=== PATIENT | female | born 1955 | race Caucasian/White ===

== ENCOUNTER 2024-02-20 10:33 | Observation (INO) ==
--- OUTSIDE RECORDS SUMMARY | 2024-02-20 10:41 | External Medical Summary | Summary of Care ---
Author Name Unknown Organization [facility] Address [address] [place] [address] Phone [phone] Care Team Providers Care Outside Sales Associate Name Role Phone Javi Nair MD Primary Care Provider [phone] Reason for Visit * Reason Onset Date Comments Advice 10/20/2023 Encounter Details Date Type Department Care Team (Late st Contact Info) Description 10/20/2023 Telephone [facility] [address] [place] [address] Javi Nair MD [address] [place] [address] Advice Allergies No known active allergiesdocumented as of this encounter (statuses as of 10/20/2023) Medications Medication Sig Dispensed Refills Start Date End Date Status CALCIUM CARBONATE-VIT D-MIN 600-200 MG-UNIT PO TABS 1 TABLET TWICE DAILY 60 Tab 11 03/19/2010 Active SALINE MIST SPRAY 0.65 % NA SOLN 2 squirts in each nostril in the morning and at night 0 Active VITAMIN B COMPLEX PO TABS one pill each day 0 Active VITAMIN C 500 MG PO TABS take 2 tabs daily 0 Active OSTEO BI-FLEX TRIPLE STRENGTH PO TABS one pill each day 0 Active LUTEIN VISION BLEND PO CAPS one pill each day 0 Active POTASSIUM GLUCONATE 595 MG PO CAPS one pill each day 0 Active TOTAL MEMORY & FOCUS FORMULA PO TABS one pill each day 0 Active cyclobenzaprine (FLEXERIL) 10 MG Tablet Take 1 Tablet by mouth in the morning and 1 Tablet before bedtime. 0 01/06/2015 Active fluticasone (FLONASE) 50 MCG/ACT nasal sprayIndications:Aller gic rhinitis USE TWO SPRAYS IN EACH NOSTRIL ONCE DAILY 1 Bottle 5 12/03/2015 Active OneTouch Delica Lancets 33G Use to test blood sugar once daily DxE11.9 300 Each 3 05/05/2022 Active OneTouch Verio In Vitro Strip (Glucose Blood) Use to test blood sugar once daily DxE11.9 300 Strip 3 05/05/2022 Active Benzonatate 100 MG Oral Capsule (Tessalon Perlalanis) Take by mouth 1 Capsule as needed in the morning AND 1 Capsule as needed at noon AND 1 Capsule as needed in the evening for Cough. 30 Capsule 1 05/19/2022 Active Levocetirizine Dihydrochloride 5 MG Oral TabletIndications:PND (post-nasal drip) Take 1 Tablet by mouth every evening. 30 Tablet 0 12/09/2022 Active Semaglutide(0.25 or 0.5MG/DOS) 2 MG/3ML Solution Pen-injector (Ozempic)Indications:T ype 2 diabetes mellitus with diabetic neuropathy, unspecified whether auto travel counselor insulin use (HCC) Inject 0.5 mg once weekly. Dose decrease 9 mL 1 02/16/2023 Active SUMAtriptan Succinate 100 MG Oral Tablet TAKE 1 TABLET BY MOUTH AT ONSET OF MIGRAINE, MAY REPEAT ONE TAB IN 24 HOURS 12 Tablet 5 04/08/2023 Active Omeprazole 20 MG Oral Capsule Delayed Release (PriLOSEC)Indications: Gastroesophageal reflux disease without esophagitis TAKE 1 CAPSULE BY MOUTH ONCE DAILY 1 HOUR BEFORE THE FIRST MEAL OF THE DAY 90 Capsule 05/14/2023 Active Atorvastatin Calcium 20 MG Oral Tablet (Lipitor)Indications:H yperlipidemia with target LDL less than 100 Take 1 tablet by mouth once daily 90 Tablet 1 05/14/2023 Active Lisinopril-hydroCHLORO thiazide 20-12.5 MG Oral TabletIndications:HTN, goal below 140/90 Take 1 tablet by mouth once daily 90 Tablet 05/18/2023 Active Lisinopril 5 MG Oral Tablet (Prinivil)Indications: HTN, goal below 140/90 TAKE 1 TABLET BY MOUTH AT BEDTIME 90 Tablet 1 06/04/2023 Active Ondansetron HCl 4 MG Oral TabletIndications:Naus ea and vomiting, unspecified vomiting type Take 1-2 Tablets by mouth every 6 hours as needed for Nausea. 12 Tablet 0 06/16/2023 Active metFORMIN HCl ER 500 MG Oral Tablet Extended Release 24 Hour (Glucophage XR)Indications:Type 2 diabetes mellitus with diabetic neuropathy, unspecified whether auto travel counselor insulin use (HCC) Take 1 Tablet by mouth 2 times a day with morning and evening meals. 180 Tablet 3 07/28/2023 Active Sulindac 150 MG Oral TabletIndications:Brac hial plexopathy Take 1 Tablet by mouth in the morning and 1 Tablet before bedtime. 60 Tablet 2 07/28/2023 Active documented as of this encounter (statuses as of 10/20/2023) Active Problems Problem Noted Date Diagnosed Date Type 2 diabetes mellitus with diabetic neuropath y 05/23/2022 Diabetes mellitus without complication 2 Brachial plexopathy 03/06/2016 Hyperlipidemia with target LDL less than 100 Rotator cuff syndrome 04/06/2014 HTN, goal below 140/90 07/06/2012 ADVANCE DIRECTIVE INFORMATION 01/22/2005 Overview: No, Advance Directive brochure given to patient. Menopause 01/28/2004 Allergic rhinitis COMMON MIGRAINE WITHOUT MENTION OF INTRACTABLE M IGRAINE documented as of this encounter (statuses as of 10/20/2023) Resolved Problems Problem Noted Date Diagnosed Date Resolved Date Other disorder of menstruati on and other abnormal bleeding from female genital tract 06/01/2002 01/28/2004 CHONDROMALACIA PATELLAE 10/14/200101/18 documented as of this encounter (statuses as of 10/20/2023) Immunizations Name Administration Dates Next Due COVID-19 mRNA, LNP-s, No Pre serve, 2-Dose Series (Videobot) 11/28/2021 Pneumococcal Conjugate Vacc, 13 Valent (Prevnar) 08/22/2022 Seasonal Influenza, PF, 6 M & above, IM , (FluLaval or Fluzone) 08/22/2022,07/17/2019 Seasonal Influenza, Quadriva lent Hd (Fluzone Hd) 07/28/2023 Seasonal Influenza, Quadriva lent, No Preserve, IM 07/08/2020 Seasonal Influenza, Quadriva lent, No Preserve, Mdck 07/17/2019 Seasonal Influenza, Split, I IV3, With Preserve, Inj 07/19/2008 TDAP (age 10 and older)(Boostrix) 04/23/2021 TDAP (age 11 and older)(Adacel) 04/01/2011 Zoster Vaccine Recombinant (Shingrix) 04/17/2020 ,11/23/2019,09/15/2019 documented as of this encounter Social History Tobacco Use Types Packs/Day Years Used Date Smoking Tobacco: Never Smokeless Tobacco: Never Alcohol Use Standard Drinks/Week Comments No 0 (1 standard drink = 0.6 oz pur e alcohol) PHQ-2 Answer Date Recorded PHQ-2 Score 0 10/13/2019 Hunger Vital Sign Answer Date Recorded Worried About Running Out of Food in the Last Ye ar Never true 10/13/2019 Ran Out of Food in the Last Year Never true 10/13/2019 Sex and Gender Information Value Date Recorded Sex Assigned at Not on file Gender Identity Not on file Sexual Orientation Not on file Job Start Date Occupation Industry Not on file Not on file Not on file documented as of this encounter Miscellaneous Notes * Telephone Encounter - Corinne Robert OSA - 10/20/2023 2:57 PM EST Patient is calling requesting medical advice/appt. She states that her eyes red, itchy and burning 2 days and itchy red spots on her legs size of a quarter today. Please contact the patient. documented in this encounter Plan of Treatment Upcoming Encounters Date Type Department Care Team (Late st Contact Info) Description 01/31/2024 4:00 PM EDT Office Visit [facility] [address] [facility] [place] [id number] Marbella Villagomez [facility]C [address] [facility] [address] 03/27/2024 4:30 PM EDT Imaging Radiology [address], [address] [place] [address] Health Maintenance Due Date Last Done Comments Diabetic Foot Exam 1975 Hepatitis C Screening 1975 Diabetic Eye Exam 02/28/2016 02/27/2015, , 02/27/2015, Additional history exists Hepatitis B (1 of 3 - Risk 3-dose series) 2017 Depression Screening 10/13/2020 10/13/2019 Pneumococcal Vaccine: 65+ Years (2 - PPSV23 or PCV20) 10/17/2022 08/22/2022 COVID-19 Vaccine (2 - season) 2023 11/28/2021 DXA Scan 08/08/2023 08/08/2013 HbA1c 09/18/2023 03/19/2023, 09/21, 03/21/2022, Additional history exists GFR 12/08/2023 12/07/2022, 0710/2021, 10/26/2020, Additional history exists Albumin/Creatinine Ratio 03/19/2024 03/19/2023 Mammogram 03/24/2024 03/24/2023, 090 09/2019, 05/01/2020, Additional history exists COLONOSCOPY-EVERY 5 YRS AGES 18-100 11/20/2025 11/20/2020, 11/20/2020, 08/23/2013, Additional history exists Lipid Panel 03/19/2028 03/19/2023, 11/18, 10/26/2020, Additional history exists DTaP,Tdap,and Td Vaccines (3 - Td or Tdap) 04/23/2031 04/23/2021, 04/01/2011, 10/21/1995 Zoster Vaccines Completed 04/17/2020, 01/2020, 09/15/2019 Influenza Vaccine (FLU shot) Completed 04/2023, 08/22/2022, 07/08/2020, Additional history exists GARDASIL-HPV IMMUNIZATION SERIES Aged Out No longer eligible based on patient's age to complete this topic MENINGOCOCCAL (MENACTRA/MENVEO) Aged Out No longer eligible based on patient's age to complete this topic documented as of this encounter Medical Devices Not on filedocumented as of this encounter Care Teams Outside Sales Associate Relationship Specialty Start Date End Date Javi Nair MD [address] [facility] [place] [address] PCP - General 01/02/04 documented as of this encounter
--- OUTSIDE RECORDS SUMMARY | 2024-02-20 10:41 | External Medical Summary | Summary of Care ---
Author Name Unknown Organization [facility] Address [address] [place] [address] Phone [phone] Care Team Providers Care Sourcing Specialist Name Role Phone Nathaniel Nair MD Primary Care Provider [phone] Reason for Visit * Reason Comments eRx-Medication Refill Encounter Details Date Type Department Care Team (Late st Contact Info) Description 02/09/[address] [facility] [address] [place] [address] Marbella Villagomez PA-C [address] [place] [address] Brachial plexopathy; HTN, goal below 140/90 Allergies No known active allergiesdocumented as of this encounter (statuses as of 02/11/2024) Medications Medication Sig Dispensed Refills Start Date End Date Status CALCIUM CARBONATE-VIT D-MIN 600-200 MG-UNIT PO TABS 1 TABLET TWICE DAILY 60 Tab 11 0 Active SALINE MIST SPRAY 0.65 % NA SOLN 2 squirts in each nostril in the morning and at night Active VITAMIN B COMPLEX PO TABS one pill each day Active VITAMIN C 500 MG PO TABS take 2 tabs daily Active OSTEO BI-FLEX TRIPLE STRENGTH PO TABS one pill each day Active LUTEIN VISION BLEND PO CAPS one pill each day Active POTASSIUM GLUCONATE 595 MG PO CAPS one pill each day Active TOTAL MEMORY & FOCUS FORMULA PO TABS one pill each day Active cyclobenzaprine (FLEXERIL) 10 MG Tablet Take 1 Tablet by mouth in the morning and 1 Tablet before bedtime. 5 Active fluticasone (FLONASE) 50 MCG/ACT nasal sprayIndications:Al lergic rhinitis USE TWO SPRAYS IN EACH NOSTRIL ONCE DAILY 1 Bottle 5 6 Active OneTouch Delica Lancets 33G Use to test blood sugar once daily DxE11.9 300 Each 3 2 Active OneTouch Verio In Vitro Strip (Glucose Blood) Use to test blood sugar once daily DxE11.9 300 Strip 3 2 Active Benzonatate 100 MG Oral Capsule (Tessalon Perles) Take by mouth 1 Capsule as needed in the morning AND 1 Capsule as needed at noon AND 1 Capsule as needed in the evening for Cough. 30 Capsule 1 2 Active Levocetirizine Dihydrochloride 5 MG Oral TabletIndications:P ND (post-nasal drip) Take 1 Tablet by mouth every evening. 30 Tablet 3 Active Semaglutide(0.25 or 0.5MG/DOS) 2 MG/3ML Solution Pen-injector (Ozempic)Indication s:Type 2 diabetes mellitus with diabetic neuropathy, unspecified whether shelter insulin use (HCC) Inject 0.5 mg once weekly. Dose decrease 9 mL 1 3 Active Atorvastatin Calcium 20 MG Oral Tablet (Lipitor)Indication s:Hyperlipidemia with target LDL less than 100 Take 1 tablet by mouth once daily 90 Tablet 1 3 Active Ondansetron HCl 4 MG Oral TabletIndications:N ausea and vomiting, unspecified vomiting type Take 1-2 Tablets by mouth every 6 hours as needed for Nausea. 12 Tablet 3 Active metFORMIN HCl ER 500 MG Oral Tablet Extended Release 24 Hour (Glucophage XR)Indications:Type 2 diabetes mellitus with diabetic neuropathy, unspecified whether shelter insulin use (HCC) Take 1 Tablet by mouth 2 times a day with morning and evening meals. 180 Tablet 3 3 Active Omeprazole 20 MG Oral Capsule Delayed Release (PriLOSEC)Indicatio ns:Gastroesophageal reflux disease without esophagitis TAKE 1 CAPSULE BY MOUTH ONCE DAILY 1 HOUR BEFORE THE FIRST MEAL OF THE DAY 90 Capsule 1 4 Active SUMAtriptan Succinate 100 MG Oral Tablet TAKE 1 TABLET BY MOUTH AT ONSET OF MIGRAINE, MAY REPEAT 1 TABLET IN 24 HOURS 12 Tablet 5 4 Active Sulindac 150 MG Oral TabletIndications:B rachial plexopathy TAKE 1 TABLET BY MOUTH ONCE DAILY IN THE MORNING AND 1 TABLET ONCE DAILY BEFORE BEDTIME 60 Tablet 4 Active Lisinopril 5 MG Oral Tablet (Prinivil)Indicatio ns:HTN, goal below 140/90 TAKE 1 TABLET BY MOUTH AT BEDTIME 90 Tablet 4 Active Lisinopril-hydroCHL OROthiazide 20-12.5 MG Oral TabletIndications:H TN, goal below 140/90 Take 1 Tablet by mouth in the morning. 90 Tablet 4 Active Lisinopril 5 MG Oral Tablet (Prinivil)Indicatio ns:HTN, goal below 140/90 TAKE 1 TABLET BY MOUTH AT BEDTIME 90 Tablet 1 3 02/11/20 24 Discontinued Sulindac 150 MG Oral TabletIndications:B rachial plexopathy Take 1 Tablet by mouth in the morning and 1 Tablet before bedtime. 60 Tablet 2 3 02/11/20 24 Discontinued Lisinopril-hydroCHL OROthiazide 20-12.5 MG Oral TabletIndications:H TN, goal below 140/90 Take 1 tablet by mouth once daily 90 Tablet 4 02/10/20 24 Discontinued(Ref ill) documented as of this encounter (statuses as of 02/11/2024) Active Problems Problem Noted Date Diagnosed Date [...] as of this encounter (statuses as of 02/11/2024) Resolved Problems Problem Noted Date Diagnosed Date Resolved Date Other disorder of menstruati on and other abnormal bleeding from female genital tract 06/01/2002 01/28/2004 CHONDROMALACIA PATELLAE 10/14/200101/18 documented as of this encounter (statuses as of 02/11/2024) Immunizations Name Administration Dates Next Due COVID-19 mRNA, LNP-s, No Pre serve, 2-Dose Series (Pfizer) 11/28/2021 Pneumococcal Conjugate Vacc, 13 Valent (Prevnar) [...] encounter Miscellaneous Notes * Telephone Encounter - Nathaniel Nair MD - 02/11/2024 9:19 AM EDTSigned Prescriptions: Disp Refills Sulindac 150 MG Oral Tablet 60 Tab*0 Sig: TAKE 1 TABLET BY MOUTH ONCE DAILY IN THE MORNING AND 1 TABLET ONCE DAILY BEFORE BEDTIME Authorizing Provider: NATHANIEL NAIR Lisinopril 5 MG Oral Tablet (Prinivil) 90 Tab*0 Sig: TAKE 1 TABLET BY MOUTH AT BEDTIME Authorizing Provider: NATHANIEL NAIR Lisinopril-hydroCH LOROthiazide 20-12.5 MG *90 Tab*0 Sig: Take 1 Tablet by mouth in the morning. Authorizing Provider: NATHANIEL NAIR * Telephone Encounter - Komal Watts roll grinder - 02/10/2024 2:41 PM EDTPending Prescriptions: Disp Refills Sulindac 150 MG Oral Tablet 60 Tab*0 Sig: TAKE 1 TABLET BY MOUTH ONCE DAILY IN THE MORNING AND 1 TABLET ONCE DAILY BEFORE BEDTIME Lisinopril 5 MG Oral Tablet (Prinivil) 90 Tab*0 Sig: TAKE 1 TABLET BY MOUTH AT BEDTIME Lisinopril-hydroCHLOROthiazide 20-12.5 MG *90 Tab*0 Sig: Take 1 Tablet by mouth in the mo rning. * Telephone Encounter - Komal Watts roll grinder - 02/10/2024 2:40 PM EDT Received message from [facility] regarding patient needing appointment and labs. Call Placed, Left messageon voicemail advising of required labs and to call back for an appointment. Thank you, Komal Watts [facility] ([facility] (formerly [facility]) 02/10/2024,2:40 PM * Telephone Encounter - Regla Heredia [facility] - 02/10/2024 12:01 PM EDTPending Prescriptions: Disp Refills Sulindac 150 MG Oral Tablet 60 Tab*0 Sig: TAKE 1 TABLET BY MOUTH ONCE DAILY IN THE MORNING AND 1 TABLET ONCE DAILY BEFORE BEDTIME Lisinopril 5 MG Oral Tablet (Prinivil) 90 Tab*0 Sig: TAKE 1 TABLET BY MOUTH AT BEDTIME Lisinopril-hydroCHLOROthiazide 20-12.5 MG *90 Tab*0 Sig: Take 1 Tablet by mouth in the mo rning. * Telephone Encounter - Regla Heredia [facility] - 02/10/2024 11:56 AM EDT Return in about 6 months (around 01/26/2024) for reg return pcp or me Patient no showed f/u appointment. Also needs labs completed. Please contact patient to schedule office visit with PRIMARY CARE and advise of labs ordered for blood draw AND URINE specimen (patient will have to be able to void to provide sample).. Recommend patient to fast if able for labs. Patient may still have water and regular medications. Advise to obtain labs before her scheduled office visit Visit date not found. Last Visit: 07/28/2023 (in office), 08/19/2022 (telemedicine) Next Visit: Visit date not found After contacting patient, please forward request to Nathaniel Nair MD. Thank You, Regla Heredia [facility] Clinical Pharmacist [facility] ([facility]) (formerly Telepharmacy) [phone] 02/10/2024, 12:00 PM documented in this encounter Plan of Treatment Upcoming Encounters Date Type Department Care Team (Late st Contact Info) Description 03/27/2024 4:30 PM EDT Imaging Radiology [facility] [address] [facility] [place] [address] [facility] [place] [address] Health Maintenance Due Date Last Done Comments Diabetic Foot Exam 1975 Hepatitis C Screening 1975 Fecal Occult Blood Test 2002 Sigmoidoscopy 2002 Diabetic Eye Exam 02/28/2016 02/27/2015, , 02/27/2015, Additional history exists Depression Screening 10/13/2020 10/13/2019 Pneumococcal Vaccine: 65+ Years (2 of 2 - PPSV23 or PCV20) 10/17/2022 08/22/2022 COVID-19 Vaccine (2 - season) 2023 11/28/2021 Cologuard 06/29/2023 06/29/2020, 12/2019, 06/23/2020 DXA Scan 08/08/2023 08/08/2013 HbA1c 09/18/2023 03/19/2023, 09/21, 03/21/2022, Additional history exists GFR 12/08/2023 12/07/2022, 10/2021, 10/26/2020, Additional history exists Albumin/Creatinine Ratio 03/19/2024 03/19/2023 Mammogram 03/24/2024 03/24/2023, 090 09/2019, 05/01/2020, Additional history exists Colonoscopy 11/20/2025 11/20/2020, 0 11/2020, 08/23/2013, Additional history exists Colorectal Cancer Screening 11/20/2025 Lipid Panel 03/19/2028 03/19/2023, 11/18, 10/26/2020, Additional history exists DTaP,Tdap,and Td Vaccines (3 - Td or Tdap) 04/23/2031 04/23/2021, 04/01/2011, 10/21/1995 Zoster Vaccines Completed 04/17/2020, 0 01/2020, 09/15/2019 RETIRED - COLONOSCOPY-EVERY 5 YRS AGES 18-100 Discontinued 11/20/2020, 11/20/2020, 08/23/2013, Additional history exists Influenza Vaccine (FLU shot) Completed 07/28/2023, 08/22/2022, 07/08/2020, Additional history exists GARDASIL-HPV IMMUNIZATION SERIES Aged Out No longer eligible based on patient's age to complete this topic Hepatitis B Aged Out No longer eligi ble based on patient's age to complete this topic MENINGOCOCCAL (MENACTRA/MENVEO) Aged Out No longer eligible based on patient's age to complete this topic documented as of this encounter Medical Devices Not on filedocumented as of this encounter Visit Diagnoses Diagnosis Brachial plexopathy Brachial plexus lesions HTN, goal below 140/90 Unspecified essential hypertension documented in this encounter Care Teams Sourcing Specialist Relationship Specialty Start Date End Date Nathaniel Nair MD [address] [place] [address] PCP - General 01/02/04 documented as of this encounter
--- OUTSIDE RECORDS SUMMARY | 2024-02-20 10:41 | External Medical Summary | Summary of Care ---
Author Name Unknown Organization [facility] Address [address] [place] [address] Phone [phone] Care Team Providers Care Net Technical Architect Name Role Phone Javi Nair MD Primary Care Provider [phone] Reason for Visit * Reason Onset Date Comments Health Maintenance 01/13/2024 Encounter Details Date Type Department Care Team (Late st Contact Info) Description 01/13/2024 Telephone [facility] [address] [place] [address] Javi Nair MD [address] [place] [address] Health Maintenance Allergies No known active allergiesdocumented as of this encounter (statuses as of 01/13/2024) Medications Medication Sig Dispensed Refills Start Date [...] diabetes mellitus with diabetic neuropathy, unspecified whether usp insulin use (HCC) Inject 0.5 mg once weekly. Dose decrease 9 mL 1 02/16/2023 Active Atorvastatin Calcium 20 MG Oral Tablet (Lipitor)Indications:H yperlipidemia with target LDL less than 100 Take 1 tablet by mouth once daily 90 Tablet 1 05/14/2023 Active Lisinopril 5 MG Oral Tablet (Prinivil)Indications: [...] diabetes mellitus with diabetic neuropathy, unspecified whether usp insulin use (HCC) Take 1 Tablet by mouth 2 times a day with morning and evening meals. 180 Tablet 3 07/28/2023 Active Sulindac 150 MG Oral TabletIndications:Brac hial plexopathy Take 1 Tablet by mouth in the morning and 1 Tablet before bedtime. 60 Tablet 2 07/28/2023 Active Omeprazole 20 MG Oral Capsule Delayed Release (PriLOSEC)Indications: Gastroesophageal reflux disease without esophagitis TAKE 1 CAPSULE BY MOUTH ONCE DAILY 1 HOUR BEFORE THE FIRST MEAL OF THE DAY 90 Capsule 1 11/09/2023 Active Lisinopril-hydroCHLORO thiazide 20-12.5 MG Oral TabletIndications:HTN, goal below 140/90 Take 1 tablet by mouth once daily 90 Tablet 0 11/30/2023 Active SUMAtriptan Succinate 100 MG Oral Tablet TAKE 1 TABLET BY MOUTH AT ONSET OF MIGRAINE, MAY REPEAT 1 TABLET IN 24 HOURS 12 Tablet 5 12/01/2023 Active documented as of this encounter (statuses as of 01/13/2024) Active Problems Problem Noted Date Diagnosed Date [...] as of this encounter (statuses as of 01/13/2024) Resolved Problems Problem Noted Date Diagnosed Date Resolved Date Other disorder of menstruati on and other abnormal bleeding from female genital tract 06/01/2002 01/28/2004 CHONDROMALACIA PATELLAE 10/14/200101/18 documented as of this encounter (statuses as of 01/13/2024) Immunizations Name Administration Dates Next Due COVID-19 mRNA, LNP-s, No Pre serve, 2-Dose Series ([employer]) 11/28/2021 Pneumococcal Conjugate Vacc, 13 Valent (Prevnar) [...] encounter Miscellaneous Notes * Telephone Encounter - Thea Wu LPN - 01/13/2024 2:41 PM EDT Care Gaps Comprehensive Care Outreach Last Office/Telemedicine Visit: 07/28/2023 (in office), 08/19/2022 (telemedicine) Next Office Visit: 01/31/2024 Hemoglobin AIC Results: Lab Results Component Value Date/Time HEMOGLOBIN A1C - [facility] 5.9 (H) 03/19/2023 07:51 AM HEMOGLOBIN A1C - [facility] 6.0 (H) 10/12/2022 03:33 PM HEMOGLOBIN A1C - [facility] 6.3 (H) 03/21/2022 12:15 PM BP Readings from Last 1 Encounters: 07/28/23 122/64 Reviewed Health Maintenance below: Health Maintenance Topic Date Due Diabetic Foot Exam Never done Hepatitis C Screening Never done Diabetic Eye Exam 02/28/2016 Depression Screening 10/13/2020 Pneumococcal Vaccine: 65+ Years (2 of 2 - PPSV23 or PCV20) 10/17/2022 COVID-19 Vaccine (2 - 3-24 season) 2023 DXA Scan 08/08/2023 HbA1c 09/18/2023 GFR 12/08/2023 Albumin/Creatinine Ratio 03/19/2024 Mammogram 03/24/2024 Eye Dexa Labs already ordered Mamm Emily already scheduled order placed Care Gap Outreach Action Taken: Left message documented in this encounter Plan of Treatment Upcoming Encounters Date Type Department Care Team (Late st Contact Info) Description 01/31/2024 4:00 PM EDT Office Visit [facility] [place] [address] [facility] [place] [address] Marbella Villagomez PA-C [address] [facility] [place] [address] 03/27/2024 4:30 PM EDT Imaging Radiology [address] [place] [address] Scheduled Orders Name Type Priority Associated Diagnoses Orde r Schedule MAMMOGRAM SCREENING RADHA BILATERAL Medical Imaging Routine Encounter for screening mammogram for malignant neoplasm of breast Expected: 01/13/2024, Expires: 02/11/2025 Health Maintenance Due Date Last Done Comments Diabetic Foot Exam 1975 Hepatitis C Screening 1975 Diabetic Eye Exam 02/28/2016 02/27/2015, , 02/27/2015, Additional history exists Depression Screening 10/13/2020 10/13/2019 Pneumococcal Vaccine: 65+ Years (2 of 2 - PPSV23 or PCV20) 10/17/2022 08/22/2022 COVID-19 Vaccine ( season) 2023 11/28/2021 DXA Scan 08/08/2023 08/08/2013 HbA1c 09/18/2023 03/19/2023, 09/21, 03/21/2022, Additional history exists GFR 12/08/2023 12/07/2022, 07/0 10/2021, 10/26/2020, Additional history exists Albumin/Creatinine Ratio 03/19/2024 03/19/2023 Mammogram 03/24/2024 03/24/2023, 09/2019, 05/01/2020, Additional history exists COLONOSCOPY-EVERY 5 [...] as of this encounter Visit Diagnoses Diagnosis Encounter for screening mammogram for malignant neoplasm of breast- Primary Other screening mammogram documented in this encounter Care Teams Net Technical Architect Relationship Specialty Start Date End Date Javi Nair MD [address] [place] [address] PCP - General 01/02/04 documented as of this encounter
--- OUTSIDE RECORDS SUMMARY | 2024-02-20 10:41 | External Medical Summary | Summary of Care ---
Author Name Unknown Organization [facility] Address [address] [place] [address] Phone [phone] Care Team Providers Care Hydraulic Technician Name Role Phone Nathaniel Nair MD Primary Care Provider [phone] Reason for Visit * Reason Comments eRx-Medication Refill Encounter Details Date Type Department Care Team (Late st Contact Info) Description 11/29/2023 Refill [facility] [address] [place] [address] Nathaniel Nair MD [address] [place] [address] Allergies No known active allergiesdocumented as of this encounter (statuses as of 12/01/2023) Medications Medication Sig Dispensed Refills Start Date [...] 01/06/2015 Active fluticasone (FLONASE) 50 MCG/ACT nasal sprayIndications:All ergic rhinitis USE TWO SPRAYS IN EACH NOSTRIL [...] 05/19/2022 Active Levocetirizine Dihydrochloride 5 MG Oral TabletIndications:PN D (post-nasal drip) Take 1 Tablet by mouth every evening. 30 Tablet 0 12/09/2022 Active Semaglutide(0.25 or 0.5MG/DOS) 2 MG/3ML Solution Pen-injector (Ozempic)Indications :Type 2 diabetes mellitus with diabetic neuropathy, unspecified whether residential insulin use (HCC) Inject 0.5 mg once weekly. Dose decrease 9 mL 1 02/16/2023 Active Atorvastatin Calcium 20 MG Oral Tablet (Lipitor)Indications :Hyperlipidemia with target LDL less than 100 Take 1 tablet by mouth once daily 90 Tablet 1 05/14/2023 Active Lisinopril 5 MG Oral Tablet (Prinivil)Indication s:HTN, goal below 140/90 TAKE 1 TABLET BY MOUTH AT BEDTIME 90 Tablet 1 06/04/2023 Active Ondansetron HCl 4 MG Oral TabletIndications:Na usea and vomiting, unspecified vomiting type Take 1-2 Tablets by mouth every 6 hours as needed for Nausea. 12 Tablet 0 06/16/2023 Active metFORMIN HCl ER 500 MG Oral Tablet Extended Release 24 Hour (Glucophage XR)Indications:Type 2 diabetes mellitus with diabetic neuropathy, unspecified whether superintendent container terminal insulin use (HCC) Take 1 Tablet by mouth 2 times a day with morning and evening meals. 180 Tablet 3 07/28/2023 Active Sulindac 150 MG Oral TabletIndications:Br achial plexopathy Take 1 Tablet by mouth in the morning and 1 Tablet before bedtime. 60 Tablet 2 07/28/2023 Active Omeprazole 20 MG Oral Capsule Delayed Release (PriLOSEC)Indication s:Gastroesophageal reflux disease without esophagitis TAKE 1 CAPSULE BY MOUTH ONCE DAILY 1 HOUR BEFORE THE FIRST MEAL OF THE DAY 90 Capsule 1 11/09/2023 Active Lisinopril-hydroCHLO ROthiazide 20-12.5 MG Oral TabletIndications:HT N, goal below 140/90 Take 1 tablet by mouth once daily 90 Tablet 0 11/30/2023 Active SUMAtriptan Succinate 100 MG Oral Tablet TAKE 1 TABLET BY MOUTH AT ONSET OF MIGRAINE, MAY REPEAT 1 TABLET IN 24 HOURS 12 Tablet 5 12/01/2023 Active SUMAtriptan Succinate 100 MG Oral Tablet TAKE 1 TABLET BY MOUTH AT ONSET OF MIGRAINE, MAY REPEAT ONE TAB IN 24 HOURS 12 Tablet 5 04/08/2023 12/01/19 24 Discontinued documented as of this encounter (statuses as of 12/01/2023) Active Problems Problem Noted Date Diagnosed Date [...] as of this encounter (statuses as of 12/01/2023) Resolved Problems Problem Noted Date Diagnosed Date Resolved Date Other disorder of menstruati on and other abnormal bleeding from female genital tract 06/01/2002 01/28/2004 CHONDROMALACIA PATELLAE 10/14/200101/18 documented as of this encounter (statuses as of 12/01/2023) Immunizations Name Administration Dates Next Due COVID-19 [...] encounter Miscellaneous Notes * Telephone Encounter - Andria Ellis RPh - 12/01/2023 6:27 AM EDTSigned Prescriptions: Disp Refills SUMAtriptan Succinate 100 MG Oral Tablet 12 Tab*5 Sig: TAKE 1 TABLET BY MOUTH AT ONSET OF MIGRAINE, MAY REPEAT 1 TABLET IN 24 HOURSAuthorizing Provider: NATHANIEL NAIR User: ANDRIA ELLIS documented in this encounter Plan of Treatment Upcoming Encounters Date Type Department Care Team (Late st Contact Info) Description 01/31/2024 4:00 PM EDT Office Visit [facility] [place] [address] [facility] [place] [phone] Marbella Villagomez PA-C [address] [place] [address] 03/27/2024 4:30 PM EDT Imaging Radiology [facility] 1st [facility] [place] [address] [facility] [place] [address] Health Maintenance Due Date Last Done Comments Diabetic Foot Exam 1973 Hepatitis C Screening 1973 Diabetic Eye Exam 02/28/2016 02/27/2015, , 02/27/2015, Additional history exists Depression Screening 10/13/2020 10/13/2019 Pneumococcal Vaccine: 65+ Years (2 of 2 - PPSV23 or PCV20) 10/17/2022 08/22/2022 COVID-19 Vaccine (2 - 2022- season) 2023 11/28/2021 DXA Scan 08/08/2023 08/08/2013 HbA1c 09/18/2023 03/19/2023, 09/21, 03/21/2022, Additional history exists GFR 12/08/2023 12/07/2022, 0710/2021, 10/26/2020, Additional history exists Albumin/Creatinine Ratio 03/19/2024 03/19/2023 Mammogram 03/24/2024 03/24/2023, 09/0 09/2019, 05/01/2020, Additional history exists COLONOSCOPY-EVERY 5 YRS AGES 18-100 11/20/2025 11/20/2020, 11/20/2020, 08/23/2013, Additional history exists Lipid Panel 03/19/2028 03/19/2023, 11/18, 10/26/2020, Additional history exists DTaP,Tdap,and Td Vaccines (3 - Td or Tdap) 04/23/2031 04/23/2021, 04/01/2011, 10/21/1995 Zoster Vaccines Completed 04/17/2020, 0301/2020, 09/15/2019 Influenza Vaccine (FLU shot) Completed 04/2023, [...] filedocumented as of this encounter Care Teams Hydraulic Technician Relationship Specialty Start Date End Date Nathaniel Nair MD [address] [place] [address] PCP - General 01/02/04 documented as of this encounter
--- OUTSIDE RECORDS SUMMARY | 2024-02-20 10:41 | External Medical Summary | Summary of Care ---
Author Name Unknown Organization [facility] Address [address] [place] [address] Phone [phone] Care Team Providers Care Surgery Manager Name Role Phone Javi Nair MD Primary Care Provider [phone] Encounter Details Date Type Department Care Team (Late st Contact Info) Description 11/15/2023 Orders Only Outcomes Research Department [address] [place] [address] Tammy Morgan [facility] Other*[id number] Allergies No known active allergiesdocumented as of this encounter (statuses as of 11/15/2023) Medications Medication Sig Dispensed Refills Start Date [...] diabetes mellitus with diabetic neuropathy, unspecified whether penitentiary insulin use (HCC) Inject 0.5 mg once weekly. Dose decrease 9 mL 1 02/16/2023 Active SUMAtriptan Succinate 100 MG Oral Tablet TAKE 1 TABLET BY MOUTH AT ONSET OF MIGRAINE, MAY REPEAT ONE TAB IN 24 HOURS 12 Tablet 5 04/08/2023 Active Atorvastatin Calcium 20 MG Oral Tablet (Lipitor)Indications:H yperlipidemia with target LDL less than 100 Take 1 tablet by mouth once daily 90 Tablet 1 05/14/2023 Active Lisinopril-hydroCHLORO thiazide 20-12.5 MG Oral TabletIndications:HTN, goal below 140/90 Take 1 tablet by mouth once daily 90 Tablet 1 05/18/2023 Active Lisinopril 5 MG Oral Tablet [...] diabetes mellitus with diabetic neuropathy, unspecified whether intermodal customer service insulin use (HCC) Take 1 Tablet by [...] THE DAY 90 Capsule 1 11/09/2023 Active documented as of this encounter (statuses as of 11/15/2023) Active Problems Problem Noted Date Diagnosed Date [...] as of this encounter (statuses as of 11/15/2023) Resolved Problems Problem Noted Date Diagnosed Date Resolved Date Other disorder of menstruati on and other abnormal bleeding from female genital tract 06/01/2002 01/28/2004 CHONDROMALACIA PATELLAE 10/14/200101/18 documented as of this encounter (statuses as of 11/15/2023) Immunizations Name Administration Dates Next Due COVID-19 mRNA, LNP-s, No Pre serve, 2-Dose Series ([employer]) 11/28/2021 Pneumococcal Conjugate Vacc, 13 Valent (Prevnar) [...] on file documented as of this encounter Plan of Treatment Upcoming Encounters Date Type Department Care Team (Late st Contact Info) Description 01/31/2024 4:00 PM EDT Office Visit [facility] [address] [place] [address] Marbella Villagomez PASkylerC [address] [place] [address] 03/27/2024 4:30 PM EDT Imaging Radiology [address], [address] [place] [address] Scheduled Orders Name Type Priority Associated Diagnoses Orde r Schedule MYCODE SUBSEQUENT ADULT Lab Routine MyCode Research Other*[id number] Every 6 Months for 2 Occurrences starting 11/15/2023 until 12/04/2024 Health Maintenance Due Date Last Done Comments Diabetic Foot Exam 1975 Hepatitis C Screening 1975 Diabetic Eye Exam 02/28/2016 02/27/2015, , 02/27/2015, Additional history exists Depression Screening 10/13/2020 10/13/2019 Pneumococcal Vaccine: 65+ Years (2 of 2 - PPSV23 or PCV20) 10/17/2022 08/22/2022 COVID-19 Vaccine (2 2022-24 season) 2023 11/28/2021 DXA Scan 08/08/2023 08/08/2013 [...] as of this encounter Visit Diagnoses Diagnosis MyCode Research Other*[id number] documented in this encounter Care Teams Surgery Manager Relationship Specialty Start Date End Date Javi Nair MD [address] [place] [address] PCP - General 01/02/04 documented as of this encounter
--- OUTSIDE RECORDS SUMMARY | 2024-02-20 10:41 | External Medical Summary | Summary of Care ---
Author Name Unknown Organization [facility] Address [address] [place] [address] Phone [phone] Care Team Providers Care Delivery And Mail Sorter Name Role Phone Nathaniel Nair MD Primary Care Provider Reason for Visit * Reason Comments eRx-Medication Refill Encounter Details Date Type Department Care Team (Late st Contact Info) Description 11/29/2023 Refill [facility] [address] [place] [address] Marbella Villagomez PA-C [address] [place] [address] Type 2 diabetes mellitus with diabetic neuropathy, without long-term current use of insulin (HCC)*; HTN, goal below 140/90; Hyperlipidemia with target LDL less than 100; Menopause; Encounter for vitamin deficiency screening; Encounter for long-term (current) use of medications; Laboratory exam ordered as part of routine general medical examination Allergies No known active allergiesdocumented as of [...] diabetes mellitus with diabetic neuropathy, unspecified whether fci insulin use (HCC) Inject 0.5 mg once [...] diabetes mellitus with diabetic neuropathy, unspecified whether fci insulin use (HCC) Take 1 Tablet by [...] 12 Tablet 5 04/08/2023 12/01/19 24 Discontinued Lisinopril-hydroCHLO ROthiazide 20-12.5 MG Oral TabletIndications:HT N, goal below 140/90 Take 1 tablet by mouth once daily 90 Tablet 1 05/18/2023 11/30/19 24 Discontinued documented as of this encounter [...] encounter Miscellaneous Notes * Telephone Encounter - Brenton Salas, billboard mechanic - 12/01/2023 10:44 AM EDT Received message from [facility] regarding patient needing labs. Placed call to patient to advise. Left message on voicemail advising of required labs Thank you, Brenton Salas [facility] Program[facility] 12/01/2023, 10:44 AM * Telephone Encounter - Rickie Dyer RP - 11/30/2023 4:46 PM EDTSigned Prescriptions: Disp Refills Lisinopril-hydroCHLOROthiazide 20-12.5 MG *90 Tab*0 Sig: Take 1 tablet by mouth once daily Authorizing Provider: NATHANIEL NAIR Ordering User: RICKIE DYER * Telephone Encounter - Rickie Dyer RP - 11/30/2023 4:38 PM EDT Provided 90 days supply with 0 refill until upcoming appt. Reviewed AMP report, Care Gaps/Health Maintenance, medications list, and for any routine labs typically ordered for this patient. Lab ordersplaced 07/28/23, 11/30/23 . Please contact patient to advise of labs ordered for blood draw AND URINE specimen (patient will have to be able to void to provide sample). Recommend patient to fast if able for labs. Patient may still have water and regular medications. Advise to obtain labs before her scheduled office visit 01/31/2024. Thanks, Rickie Dyer, Madelin.Ph. Clinical Pharmacist [facility] [phone] ext [phone] 11/30/2023,4:43 PM documented in this encounter Plan of Treatment Upcoming Encounters Date Type Department Care Team (Late st Contact Info) Description 01/31/2024 4:00 PM EDT Office Visit [facility] [address] [facility] [place] [phone] Marbella Villagomez PA-C [address] [place] [facility] [place] [address] 03/27/2024 4:30 PM EDT Imaging Radiology [facility] [address] [facility], [address] [place] [address] Scheduled Orders Name Type Priority Associated Diagnoses Orde r Schedule ALBUMIN / CREATININE RATIO, URINE Lab Routine HTN, goal below 140/90 Type 2 diabetes mellitus with diabetic neuropathy, without long-term current use of insulin (HCC) Laboratory exam ordered as part of routine general medical examination Expected: 12/01/2023 (Approximate), Expires: 11/29/2024 LIPID PANEL WITH DIRECT LDL IF TG IS HIGH Lab Routine Hyperlipidemia with target LDL less than 100 Menopause Encounter for long-term (current) use of medications Laboratory exam ordered as part of routine general medical examination Expected: 12/01/2023 (Approximate), Expires: 11/29/2024 VITAMIN B12 Lab Routine Menopause Encounter for vitamin deficiency screening Encounter for long-term (current) use of medications Laboratory exam ordered as part of routine general medical examination Expected: 12/01/2023 (Approximate), Expires: 11/29/2024 HGB Lab Routine HTN, goal below 140/90 Menopause Encounter for long-term (current) use of medications Laboratory exam ordered as part of routine general medical examination Expected: 12/01/2023 (Approximate), Expires: 11/29/2024 COMPREHENSIVE METABOLIC PANEL Lab Routine HTN, goal below 140/90 Type 2 diabetes mellitus with diabetic neuropathy, without long-term current use of insulin (HCC) Menopause Encounter for long-term (current) use of medications Laboratory exam ordered as part of routine general medical examination Expected: 12/01/2023 (Approximate), Expires: 11/29/2024 Health Maintenance Due Date Last Done Comments [...] as of this encounter Visit Diagnoses Diagnosis Type 2 diabetes mellitus with diabetic neuropathy, without long-term current use of insulin (HCC)- Primary HTN, goal below 140/90 Unspecified essential hypertension Hyperlipidemia with target LDL less than 100 Other and unspecified hyperlipidemia Menopause Asymptomatic postmenopausal status (age-related) (natural) Encounter for vitamin deficiency screening Screening for other and unspecified endocrine, nutritional, metabolic, and immunity disorders Encounter for long-term (current) use of medications Encounter for long-term (current) use of other medications Laboratory exam ordered as part of routine general medical examination Laboratory examination ordered as part of a routine general medical examination documented in this encounter Care Teams Delivery And Mail Sorter Relationship Specialty Start Date End Date Nathaniel Nair MD [address] [place] [facility] [place] [address] PCP - General 01/02/04 documented as of this encounter
--- OUTSIDE RECORDS SUMMARY | 2024-02-20 10:41 | External Medical Summary | Summary of Care ---
Author Name Unknown Organization [facility] Address [address] [place] [address] Phone [phone] Care Team Providers Care Roller Picker Name Role Phone Nathaniel Nair MD Primary Care Provider Reason for Visit * Reason Comments eRx-Medication Refill Encounter Details Date Type Department Care Team (Late st Contact Info) Description 11/08/2023 Refill [facility] [address] [place] [address] Nathaniel Nair MD [address] [place] [address] Gastroesophageal reflux disease without esophagitis Allergies No known active allergiesdocumented as of this encounter (statuses as of 11/09/2023) Medications Medication Sig Dispensed Refills Start Date [...] diabetes mellitus with diabetic neuropathy, unspecified whether jail insulin use (HCC) Inject 0.5 mg once [...] once daily 90 Tablet 1 05/14/2023 Active Lisinopril-hydroCHLO ROthiazide 20-12.5 MG Oral TabletIndications:HT N, goal below 140/90 Take 1 tablet by mouth once daily 90 Tablet 1 05/18/2023 Active Lisinopril 5 MG Oral Tablet (Prinivil)Indication [...] diabetes mellitus with diabetic neuropathy, unspecified whether jail insulin use (HCC) Take 1 Tablet by [...] THE DAY 90 Capsule 1 11/09/2023 Active Omeprazole 20 MG Oral Capsule Delayed Release (PriLOSEC)Indication s:Gastroesophageal reflux disease without esophagitis TAKE 1 CAPSULE BY MOUTH ONCE DAILY 1 HOUR BEFORE THE FIRST MEAL OF THE DAY 90 Capsule 1 05/14/2023 11/09/19 24 Discontinued documented as of this encounter (statuses as of 11/09/2023) Active Problems Problem Noted Date Diagnosed Date [...] as of this encounter (statuses as of 11/09/2023) Resolved Problems Problem Noted Date Diagnosed Date Resolved Date Other disorder of menstruati on and other abnormal bleeding from female genital tract 06/01/2002 01/28/2004 CHONDROMALACIA PATELLAE 10/14/200101/18 documented as of this encounter (statuses as of 11/09/2023) Immunizations Name Administration Dates Next Due COVID-19 mRNA, LNP-s, No Pre serve, 2-Dose Series ([employer]) 11/28/2021 Pneumococcal Conjugate Vacc, 13 Valent (Prevnar) [...] encounter Miscellaneous Notes * Telephone Encounter - [place] RPh - 11/09/2023 7:21 AM ESTSigned Prescriptions: Disp Refills Omeprazole 20 MG Oral Capsule Delayed Rele*90 Cap*1 Sig: TAKE 1 CAPSULE BY MOUTH ONCE DAILY 1 HOUR BEFORE THE FIRST MEAL OF THE DAYAuthorizing Provider: NATHANIEL NAIR User: [place] documented in this encounter Plan of Treatment Upcoming Encounters Date Type Department Care Team (Late st Contact Info) Description 01/31/2024 4:00 PM EDT Office Visit [facility] [place] [address] [place] [phone] Marbella Villagomez PA-C [address] [facility] [place] [address] 03/27/2024 4:30 PM EDT Imaging Radiology [facility] [address] [facility] [place] [address] [place] [address] Health Maintenance Due Date Last Done Comments [...] as of this encounter Visit Diagnoses Diagnosis Gastroesophageal reflux disease without esophagitis Esophageal reflux documented in this encounter Care Teams Roller Picker Relationship Specialty Start Date End Date Nathaniel Nair MD [address] [place] [address] PCP - General 01/02/04 documented as of this encounter
--- OUTSIDE RECORDS SUMMARY | 2024-02-20 10:41 | External Medical Summary | Summary of Care ---
Author Name Unknown Organization [facility] Address [address] [place] [address] Phone [phone] Care Team Providers Care Drafter Civil Engineering Name Role Phone Javi Nair MD Primary Care Provider [phone] Encounter Details Date Type Department Care Team (Late st Contact Info) Description 12/02/2023 Orders Only PATIENT PORTAL DO NOT DELETE THIS DEPT USED BY [place] [id number] Allergies No known active allergiesdocumented as of this encounter (statuses as of 12/02/2023) Medications Medication Sig Dispensed Refills Start Date [...] diabetes mellitus with diabetic neuropathy, unspecified whether long term care pharmacist insulin use (HCC) Inject 0.5 mg once [...] diabetes mellitus with diabetic neuropathy, unspecified whether long term care pharmacist insulin use (HCC) Take 1 Tablet by [...] as of this encounter (statuses as of 12/02/2023) Active Problems Problem Noted Date Diagnosed Date [...] as of this encounter (statuses as of 12/02/2023) Resolved Problems Problem Noted Date Diagnosed Date Resolved Date Other disorder of menstruati on and other abnormal bleeding from female genital tract 06/01/2002 01/28/2004 CHONDROMALACIA PATELLAE 10/14/200101/18 documented as of this encounter (statuses as of 12/02/2023) Immunizations Name Administration Dates Next Due COVID-19 [...] Description 01/31/2024 4:00 PM EDT Office Visit [facility] [address] [place] [facility] [place] [phone] Marbella Villagomez PA-C [address] [place] [address] 03/27/2024 4:30 PM EDT Imaging Radiology [address] [facility] [place] [address] Health Maintenance Due Date Last Done Comments [...] filedocumented as of this encounter Care Teams Drafter Civil Engineering Relationship Specialty Start Date End Date Javi Nair MD [address] [place] [address] PCP - General 01/02/04 documented as of this encounter
--- OUTSIDE RECORDS SUMMARY | 2024-02-20 10:41 | External Medical Summary | Summary of Care ---
Author Name Unknown Organization [facility] Address [address] [place] [address] Phone [phone] Care Team Providers Care Human Factors Advisor Lead Name Role Phone Javi Nair MD Primary Care Provider Reason for Visit * Reason Comments eRx-Medication Refill Encounter Details Date Type Department Care Team (Late st Contact Info) Description 02/09/2024 Refill [facility] [address] [place] [address] Javi Nair MD [address] [place] [address] HTN, goal below 140/90 Allergies No known active allergiesdocumented as of this encounter (statuses as of 02/10/2024) Medications Medication Sig Dispensed Refills Start Date [...] the morning and 1 Tablet before bedtime. 01/06/2015 Active fluticasone (FLONASE) 50 MCG/ACT nasal [...] Tablet by mouth every evening. 30 Tablet 12/09/2022 Active Semaglutide(0.25 or 0.5MG/DOS) 2 MG/3ML Solution Pen-injector (Ozempic)Indications:T ype 2 diabetes mellitus with diabetic neuropathy, unspecified whether skilled nursing insulin use (HCC) Inject 0.5 mg once [...] hours as needed for Nausea. 12 Tablet 06/16/2023 Active metFORMIN HCl ER 500 MG Oral Tablet Extended Release 24 Hour (Glucophage XR)Indications:Type 2 diabetes mellitus with diabetic neuropathy, unspecified whether termite exterminator insulin use (HCC) Take 1 Tablet by [...] tablet by mouth once daily 90 Tablet 11/30/2023 Active SUMAtriptan Succinate 100 MG Oral Tablet TAKE 1 TABLET BY MOUTH AT ONSET OF MIGRAINE, MAY REPEAT 1 TABLET IN 24 HOURS 12 Tablet 5 12/01/2023 Active documented as of this encounter (statuses as of 02/10/2024) Active Problems Problem Noted Date Diagnosed Date [...] as of this encounter (statuses as of 02/10/2024) Resolved Problems Problem Noted Date Diagnosed Date Resolved Date Other disorder of menstruati on and other abnormal bleeding from female genital tract 06/01/2002 01/28/2004 CHONDROMALACIA PATELLAE 10/14/200101/18 documented as of this encounter (statuses as of 02/10/2024) Immunizations Name Administration Dates Next Due COVID-19 [...] encounter Miscellaneous Notes * Telephone Encounter - [facility] - 02/10/2024 12:01 PM EDTRefused Prescriptions: Disp Refills Lisinopril-hydroCHLOROthiazide 20-12.5 MG *90 Tab*0 Sig: Take 1tablet by mouth once dailyRefused By: MARC HEREDIA LReason for Refusal: Duplicate RequestReason for Refusal Comment: pended in previous encounter Electronically signed by [facility] at 02/10/2024 12:01 PM EDT documented in this encounter Plan of Treatment Upcoming Encounters Date Type Department Care Team (Late st Contact Info) Description 03/27/2024 4:30 PM EDT Imaging Radiology [address], [address] [place] [address] Health Maintenance Due Date Last Done Comments Diabetic Foot Exam 1973 Hepatitis C Screening 1975 Fecal Occult Blood Test 2002 Sigmoidoscopy 2002 Diabetic Eye Exam 02/28/2016 02/27/2015, , 02/27/2015, Additional history exists Depression Screening 10/13/2020 10/13/2019 Pneumococcal Vaccine: 65+ Years (2 of 2 - PPSV23 or PCV20) 10/17/2022 08/22/2022 COVID-19 Vaccine (2 - 2022- season) 2023 11/28/2021 Cologuard 06/29/2023 06/29/2020, 12/2019, 06/23/2020 DXA Scan 08/08/2023 08/08/2013 HbA1c 09/18/2023 03/19/2023, 09/21, 03/21/2022, Additional history exists GFR 12/08/2023 12/07/2022, 0 10/2021, 10/26/2020, Additional history exists Albumin/Creatinine Ratio [...] as of this encounter Visit Diagnoses Diagnosis HTN, goal below 140/90 Unspecified essential hypertension documented in this encounter Care Teams Human Factors Advisor Lead Relationship Specialty Start Date End Date Javi Nair MD [address] [place] [address] PCP - General 01/02/04 documented as of this encounter
--- NOTE | 2024-02-20 10:54 | Emergency Department Note ---
History of Present Illness General Chief complaint: Cardiac Assessment Stated complaint: CHEST PAIN,CHANGING BP,DIZZY,EXCESSIVE SWEAT Time Seen by Provider: 02/20/24 10:41 Source: patient, RN notes reviewed and old records reviewed (12/07/22-ED visit for hypertension and dizziness) Mode of arrival: ambulatory Limitations: no limitations History of Present Illness Maximum Pain Intensity: 1 This patient six 8-year-old female who is in her usual state of health and feeling well until she got lightheaded and dizzy. She says she was sitting at breakfast table eating cereal around 950 got lightheaded dizziness felt like things were black she took a deep breath and felt better a little bit but she checked her blood pressure and said it was 68 with a pulse of 140 she has had some pain in her back and also into the chest at times. She felt like her heart was racing and she rechecked her pulse it was 199 with a blood pressure 116/73 she has no history of arrhythmias. No history of cardiac disease. She feels much better at present but she still has some vague back discomfort between her shoulder blades. Nonpleuritic she occasionally gets some lower extremity swelling but nothing different lately no fever or chills she had a cold last week but has been doing well this week with otherwise no recent illness. No blood or melena stool. No focal numbness or weakness she is a mild headache which is not unusual for her and she rates it 3 out of 10. No syncope or fall or trauma. No history of PE/DVT. Home Medications Medication Instructions Recorded Confirmed Type lisinopril 20 1 tab PO DAILY 02/20/24 02/20/24 History mg-hydrochlorothiazide 12.5 mg tablet lisinopril 5 mg tablet 5 mg PO HS 02/20/24 02/20/24 History metformin 500 mg tablet,extended 500 mg PO BID 02/20/24 02/20/24 History release 24 hr omeprazole 20 mg capsule,delayed 20 mg PO DAILY 02/20/24 02/20/24 History release sulindac 150 mg tablet 150 mg PO BID 02/20/24 02/20/24 History Allergies Allergy/AdvReac Type Severity Reaction Status Date / Time tuberculin, purified protein Allergy Unknown LOCAL Verified 10/25/09 04:22 deriva REACTION Past Med/Surg History Problem List (Updated 02/20/24 @ 15:38 by Sergo Morrissey MD) Back pain (Acute) Chest pain (Acute) Near syncope Palpitations (Acute) Dizziness (Acute) Diplopia (Acute) Left-sided third cranial nerve palsy on examination (Acute) Medical History H/O: HTN (hypertension) Surgical History No pertinent past surgical history Social History Smoking Status: Never smoker Hx Alcohol Use: No Hx Substance Use: No current occupational status: employed Feels Safe at Home: Yes Review of Systems A total of 10 systems reviewed and were otherwise negative Physical Exam Vital Signs Vital Signs - 24 hr 02/20/24 10:37 02/20/24 10:52 02/20/24 12:47 Temperature 36.9 C Temperature Source Temporal Artery Scan Pulse Rate 111 H 116 H Pulse Rate [Left Finger] 90 Pulse Rhythm [Left Finger] Regular Pulse Strength [Left Finger] Normal Respiratory Rate 16 20 Respiratory Effort / Characteristics Non-Labored Spontaneous Respiratory Depth Normal Normal Respiratory Pattern Regular Blood Pressure 150/85 H Blood Pressure [Left Arm] 126/86 Blood Pressure Mean 106 Blood Pressure Mean [Left Arm] 99 Pulse Oximetry 97 96 Oxygen Delivery Method Room Air Room Air Sepsis Recent Fever Within 48 Hours No Sepsis New/Unexplained Change in Mental Status No Sepsis Action Taken by Nursing No Action Required 02/20/24 14:35 02/20/24 15:21 Temperature Temperature Source Pulse Rate 89 Pulse Rate [Left Finger] 88 Pulse Rhythm [Left Finger] Pulse Strength [Left Finger] Respiratory Rate 16 Respiratory Effort / Characteristics Respiratory Depth Respiratory Pattern Blood Pressure Blood Pressure [Left Arm] 153/121 H Blood Pressure Mean Blood Pressure Mean [Left Arm] 131 Pulse Oximetry 95 Oxygen Delivery Method Room Air Sepsis Recent Fever Within 48 Hours Sepsis New/Unexplained Change in Mental Status Sepsis Action Taken by Nursing General: Well developed well nourished middle-age female who appears in no acute distress, breathing comfortably on room air. Normal speech HEENT: Normal cephalic atraumatic. Pupils are equal round and reactive to light. Extraocular movements are intact. Oropharynx is pink with moist mucous membranes. No swelling of the mouth lips or tongue. Neck: Supple with a midline trachea. No meningeal signs or stiffness, no JVD or bruits. No Stridor. Chest: Clear to auscultation bilaterally. No wheezes or rhonchi. No increased work of breathing. Heart: Regular rate and rhythm without murmurs or gallops. Abdomen: Soft nontender, nondistended without rebound guarding or rigidity. Extremities: No cyanosis clubbing or edema. No calf tenderness or assymetry Spine/Back. Non tender to palpation. No CVA tenderness Skin: Good turgor without rashes. Neurologic exam: Cranial nerves two through 12 are intact. Motor and sensation are intact and symmetrical throughout. Course Administered Medications Discontinued Medications Sodium Chloride (Nss) 1,000 mls @ 999 mls/hr IV .Q1H1M ONE Stop: 02/20/24 11:52 Last Infusion: 02/20/24 15:21 Dose: Infused Documented By: Admin: 02/20/24 11:13 Dose: 999 mls/hr Documented By: JOSE Ioversol (Optiray 320 125ml) 112 ml IV ONCE ONE Stop: 02/20/24 12:36 Last Admin: 02/20/24 12:35 Dose: 112 ml Documented By: NGUYEN Medical Decision Making Differential Diagnosis Acute coronary syndrome, arrhythmia, PE, aortic pathology, pneumothorax, CHF, electrolyte or metabolic abnormality, thyroid disease, sepsis, anemia Medical Records Attestation: I reviewed the patient's medical records. Home Medications Current Medication List: was personally reviewed by me Laboratory Data Attestation: I reviewed the patient's lab results. 02/20/24 10:59 02/20/24 10:59 Lab Results 02/20/24 02/20/24 Range/Units 10:59 11:10 WBC 5.72 (4.8-10.8) K/ul RBC 5.07 (4.20-5.40) M/uL Hgb 15.6 (12.0-16.0) g/dl Hct 46.6 (37.0-47.0) % MCV 91.9 (80.0-100.0) fL MCH 30.8 (25.0-34.0) pg MCHC 33.5 (32.0-36.0) g/dL RDW Std Deviation 41.3 (36.4-46.3) fL RDW Coeff of Sayda 12.3 (11.5-14.5) % Plt Count 279 (130-400) K/uL MPV 10.6 (9.4-12.4) fL Immature Gran % (Auto) 0.2 % Neut % (Auto) 41.8 % Lymph % (Auto) 50.0 % [place] % (Auto) 4.5 % Eos % (Auto) 2.8 % Baso % (Auto) 0.7 % Neut # (Auto) 2.39 (1.40-6.50) K/uL Lymph # (Auto) 2.86 (1.20-3.40) K/uL [place] # (Auto) 0.26 (0.11-0.59) K/uL Eos # (Auto) 0.16 (0.00-0.50) K/uL Baso # (Auto) 0.04 (0.00-0.20) K/uL Immature Gran # (Auto) 0.01 (0.01-0.20) K/uL Platelet Estimate Normal (Normal) PT 10.1 (9.0-12.0) Seconds INR 0.9 (0.9-1.1) APTT 24 (21-31) Seconds PTT Ratio 0.9 D-Dimer 400 (0-500) ug/L FEU Sodium 136 (136-145) mmol/L Potassium 3.9 (3.5-5.1) mmol/L Chloride 104 (98-107) mmol/L Carbon Dioxide 23 (21-32) mmol/L Anion Gap 9 (3-11) BUN 14 (6-23) mg/dl Creatinine 0.76 (0.6-1.2) mg/dl Est Cr Clr Drug Dosing 73.2 ml/min Est GFR ( Amer) 94.7 ml/min Est GFR (Non-Af Amer) 81.7 ml/min BUN/Creatinine Ratio 18.4 (10-20) Glucose 122 H (70-99(Fasting)) mg/dl Calcium 9.6 (8.6-10.3) mg/dl Magnesium 1.7 (1.7-2.4) mg/dl Total Bilirubin 0.5 (0.2-1.0) mg/dl AST 27 (13-39) U/L ALT 28 (7-52) U/L Alkaline Phosphatase 70 (34-104) U/L Troponin I High Sens 13.8 (0-14) pg/ml Total Protein 7.0 (6.0-8.3) gm/dl Albumin 4.3 (3.4-5.0) gm/dl Globulin 2.7 (2.5-4.0) gm/dl Albumin/Globulin Ratio 1.6 (0.9-2) Lipase 17 (11-82) U/L TSH 2.969 (0.300-4.500) uIu/ml Imaging Data Attestation: I personally reviewed and interpreted this imaging study as follows: My Impression: Chest x-rayno acute infiltrate, failure, pneumothorax. Normal-appearing aortic knob. Radiologist's Impression: Chest X-Ray 02/20/24 10:52 XR chest 1V portable CLINICAL HISTORY: Chest pain, nonspecific TECHNIQUE: Single frontal radiograph of the chest was obtained. Comparison: Comparison is made to chest radiographs 01/06/2015 FINDINGS: No lines and tubes are seen. The cardiomediastinal silhouette is normal. The lungs are clear. No evidence of pleural effusion or pneumothorax. IMPRESSION: No acute chest disease. ACT 112: Negative or not required by law. Electronically signed by: Vernon Mc M.D. 02/20/2024 12:04 PM Chest CTA 02/20/24 12:01 CT angio chest dissec wo/w con CLINICAL HISTORY: back pain, tachycardia TECHNIQUE: Multidetector row helical CT of the chest was performed before and after injection of IV contrast. Coronal, sagittal, and MIP reformations were obtained. Automated dose lowering techniques and/or adjustment according to patient size were utilized for this exam. CT DOSE: 1765.64 mGy.cm Comparison: Comparison is made to chest radiograph 02/20/2024 FINDINGS: Lungs and pleura: Atelectasis versus scarring is seen in the dependent portions of the lungs. 4 mm nodule in the right middle lobe (series 7 image 57) is seen. Heart and pericardium: Heart size is normal. No pericardial effusion. Vessels: No aortic dissection or intramural hematoma is seen. Mediastinum and tab: Subcentimeter lymph nodes are seen. Chest wall and lower neck: Small thyroid nodules are noted which do not require follow-up by ACR criteria. Subcentimeter bilateral axillary nodes are seen. Abdomen: Unremarkable. Bones: Degenerative changes in the thoracic spine. IMPRESSION: 1. No acute abnormality and in particular no evidence of acute aortic injury. 2. 4 mm nodule in the right middle lobe. According to Fleischner criteria, no follow-up is required in low risk patients, in high-risk patients, a 12 month follow-up CT can be optionally performed. ACT 112: Negative or not required by law. Electronically signed by: Vernon Mc M.D. 02/20/2024 12:[address] 02/20/24 14:00 CT head/brain wo con CLINICAL HISTORY: near syncope Technique: Contiguous axial CT images of the head were acquired from the base of the skull to the vertex without intravenous contrast administration. Images were viewed in brain, subdural and bone windows. Automated dose lowering techniques and/or adjustment according to patient size were utilized for this exam. Comparison: None available at the time of this dictation. Findings: The ventricles, basal cisterns, and cerebral sulci are normal. There is no acute intracranial hemorrhage or evidence of acute territorial infarction. Neither mass effect, shift of the midline structures, nor abnormal extra-axial fluid collections are shown. Imaged portions of the paranasal sinuses and mastoid air cells are clear. The orbits appear normal. There are no acute fractures of the calvaria or scalp swelling. Impression: No acute intracranial hemorrhage, no evidence of acute territorial infarction or other acute intracranial disease process. ACT 112: Negative or not required by law. Electronically signed by: Vernon Mc M.D. 02/20/2024 2:38 PM ECG Data Attestation: I personally reviewed and interpreted this ECG as follows: Indication: + palpitations and + weakness Rate (beats per minute): 115 Rhythm: + normal sinus ECG Intervals/blocks: + Normal QRS, + Normal QT and + Normal RI ECG [place]: + Normal ECG ST segments: + Normal ST segments ECG Findings: no PACs or no PVCs Comparison ECG Date: from (12/07/21) Change: the following changes noted (Rate has increased from 90 but otherwise no change) MDM Narrative This patient comes in as described above. She was placed on a conveyor monitor in room a 12. She had dizziness at home and by her accounts low blood pressure and tachycardia. At present her blood pressure looks good her heart rate is sinus tachycardic at 115 without ischemic changes. Given her symptoms she needs a full cardiac workup and evaluation for arrhythmia as well as acute coronary syndrome. Also concerned about the potential for pulmonary disease such as PE or aortic pathology. I did order extensive workup she was placed on a conveyor monitor. She was given 1 L IV normal saline bolus. EKG shows no ischemic changes. Multiple blood testing was obtained she was reassessed frequently. Chest x-ray shows no acute infiltrate, failure, pneumothorax. Her aortic shadow/knob appears normal. Troponin was negative. D-dimer is negative which would make PE unlikely. She has no significant electrolyte or metabolic abnormality. I did a chest CT angiography no evidence of aortic pathology or other acute pathology to explain her symptoms. With her symptoms at home where she was very tachycardic and hypotensive, I do think she should be admitted/observed, cardiac monitoring and further cardiac workup. I discussed the case at length with Dr. Arnold and he saw the ER for these measures. Continuous cardiac monitoring call orders placed in EMR for continuous conveyor monitor: Upon my evaluation she was noted to be in sinus tachycardia rate of 110 Impression & Plan Chest pain, Dizziness, Palpitations, Back pain Discharge Plan Visit Data Chief Complaint: Cardiac Assessment Stated Complaint: CHEST PAIN,CHANGING BP,DIZZY,EXCESSIVE SWEAT ED Provider: Sergo Morrissey Discharge Problem: Chest pain, Dizziness, Palpitations, Back pain Forms Stand Alone Forms: My [facility] [employer]mail Prescriptions Prescriptions: No Action lisinopril-hydrochlorothiazide 20-12.5 mg tablet 1 tab PO DAILY sulindac 150 mg tablet 150 mg PO BID omeprazole 20 mg capsule,delayed release(DR/EC) 20 mg PO DAILY lisinopril 5 mg tablet 5 mg PO HS metformin 500 mg tablet extended release 24 hr 500 mg PO BID Referrals Referrals: Javi Nair MD [Primary Care Provider] - Discharge Problem: Chest pain Qualifiers: Chest pain type: precordial pain Qualified Code(s): R07.2 - Precordial pain Back pain Qualifiers: Back pain location: thoracic back pain Chronicity: acute Back pain laterality: midline Qualified Code(s): M54.6 - Pain in thoracic spine
[2024-02-20] MEDS: SODIUM CHLORIDE 0.9% 1,000 ML IV ONE (11:13)
[2024-02-20 11:29] LABS: Albumin Level 4.3 gm/dl (3.4-5.0); Calcium 9.6 mg/dl (8.6-10.3)
[2024-02-20 11:35] LABS: Troponin I High Sensitivity 13.8 pg/ml (0-14)
[2024-02-20 11:37] LABS: BUN Creatinine Ratio 18.4 (10-20); Creatinine Clr Calc Pharmacy 73.2 ml/min; Est GFR (African American) 94.7 ml/min; Est GFR (Non-African American) 81.7 ml/min; Potassium 3.9 mmol/L (3.5-5.1)
[2024-02-20 11:45] LABS: Thyroid Stimulating Hormone 2.969 uIu/ml (0.300-4.500)
[2024-02-20 11:47] LABS: White Blood Count 5.72 K/ul (4.8-10.8)
[2024-02-20 11:48] LABS: Basophils # (auto) 0.04 K/uL (0.00-0.20); Basophils % (auto) 0.7 %; Eosinophils # (auto) 0.16 K/uL (0.00-0.50); Eosinophils % (auto) 2.8 %; Hematocrit (blood only) 46.6 % (37.0-47.0); Hemoglobin 15.6 g/dl (12.0-16.0); Immature Granulocytes # (auto) 0.01 K/uL (0.01-0.20); Immature Granulocytes % (auto) 0.2 %; Lymphocytes # (auto) 2.86 K/uL (1.20-3.40); Mean Corpuscular Hemoglobin 30.8 pg (25.0-34.0); Mean Corpuscular Hgb Conc 33.5 g/dL (32.0-36.0); Mean Corpuscular Volume 91.9 fL (80.0-100.0); Mean Platelet Volume 10.6 fL (9.4-12.4); Monocytes # (auto) 0.26 K/uL (0.11-0.59); Monocytes % (auto) 4.5 %; Neutrophils # (auto) 2.39 K/uL (1.40-6.50); Neutrophils % (auto) 41.8 %; Platelet Count 279 K/uL (130-400); Platelet Estimate Normal (Normal); RDW Coefficient of Variation 12.3 % (11.5-14.5); RDW Standard Deviation 41.3 fL (36.4-46.3); Red Blood Count 5.07 M/uL (4.20-5.40)
[2024-02-20 11:51] LABS: Albumin Globulin Ratio 1.6 (0.9-2); Globulin 2.7 gm/dl (2.5-4.0)
[2024-02-20 11:56] LABS: Bilirubin,Total 0.5 mg/dl (0.2-1.0); Magnesium 1.7 mg/dl (1.7-2.4)
[2024-02-20 12:00] LABS: D Dimer 400 ug/L FEU (0-500); INR 0.9 (0.9-1.1); Partial Thromboplastin Ratio 0.9; Partial Thromboplastin Time 24 Seconds (21-31); Prothrombin Time 10.1 Seconds (9.0-12.0)
--- NOTE | 2024-02-20 12:06 | XRay Report ---
XR chest 1V portable CLINICAL HISTORY: Chest pain, nonspecific TECHNIQUE: Single frontal radiograph of the chest was obtained. Comparison: Comparison is made to chest radiographs 01/06/2015 FINDINGS: No lines and tubes are seen. The cardiomediastinal silhouette is normal. The lungs are clear. No evid ence of pleural effusion or pneumothorax. IMPRESSION: No acute chest disease. ACT 112: Negative or not required by law. Electronically signed by: Vernon Mc M.D. 02/20/2024 12:04 PM
[2024-02-20] MEDS: OPTIRAY 320 125ml IV ONE (12:35)
--- NOTE | 2024-02-20 12:51 | CT Scan Report ---
CT angio chest dissec wo/w con CLINICAL HISTORY: back pain, tachycardia TECHNIQUE: Multidetector row helical CT of the chest was performed before and after injection of IV c ontrast. Coronal, sagittal, and MIP reformations were obtained. Automated dose lowering techniques an d/or adjustment according to patient size were utilized for this exam. CT DOSE: 1765.64 mGy.cm Comparison: Comparison is made to chest radiograph 02/20/2024 FINDINGS: Lungs and pleura: Atelectasis versus scarring is seen in the dependent portions of the lungs. 4 mm no dule in the right middle lobe (series 7 image 57) is seen. Heart and pericardium: Heart size is normal. No pericardial effusion. Vessels: No aortic dissection or intramural hematoma is seen. Mediastinum and tab: Subcentimeter lymph nodes are seen. Chest wall and lower neck: Small thyroid nodules are noted which do not require follow-up by ACR carlos villegas. Subcentimeter bilateral axillary nodes are seen. Abdomen: Unremarkable. Bones: Degenerative changes in the thoracic spine. IMPRESSION: 1. No acute abnormality and in particular no evidence of acute aortic injury. 2. 4 mm nodule in the right middle lobe. According to Fleischner criteria, no follow-up is required in low risk patients, in high-risk patients, a 12 month follow-up CT can be optionally performed. ACT 112: Negative or not required by law. Electronically signed by: Vernon Mc M.D. 02/20/2024 12:49 PM
--- NOTE | 2024-02-20 14:04 | History & Physical Report ---
Date of Service February 20, 2024 Assessment & Plan (1) Near syncope: (2) Palpitations: Plan: 65-year-old female with history of diabetes type 2, hypertension, etc. presenting with near syncopal episode this morning. Episode of Near syncope, palpitations Rule out Arrhythmia Monitor in telemetry Echocardiogram: pending Second troponin: pending If inpatient work up unrevealing, will need Zio patch monitor as an outpatient needs [employer] report until further workup Rule out acute CVA CT head: Pending no focal deficits at this time Check orthostatic vital signs Pulmonary embolism, aortic dissection ruled out by CT angiogram of the chest Diabetes type 2 Hold metformin Patient has discontinued Ozempic due to constipation Insulin sliding scale Hypertension Blood pressure currently 126/86 Hold usual lisinopril/hydrochlorothiazide for now , trend blood pressure Brachial plexopathy Chronic Take sulindac twice a day DVT prophylaxis SCDs for now CODE STATUS full code Disposition Lives at home History of Present Illness Primary Care Provider: Javi Nair MD 65-year-old female with history of diabetes type 2, hypertension, etc. presenting with near syncopal episode this morning. Patient was sitting in her couch, having a bowl of cereal for breakfast when she suddenly felt dizzy and saw everything was black , which lasted for about 2 to 3 seconds. This was followed by a sensation of epigastric discomfort as well as pain in between her shoulder blades. She did not pass out, nor did not have any palpitations during this episode. Using her home monitor, she noted that her blood pressure was systolic 60s, heart rate in the 140s. She rested and after a few minutes, she reports having palpitations . At that time, her monitor was showing that her heart rate was fluctuating between 190s and 40s, blood pressure 116 over 70s. At the ER, blood pressure was 150/85, heart rate 111. EKG sinus rhythm, heart rate [address] angio chest: No PE or dissection On exam, patient seen sitting up in bed, comfortable, not in distress. Denies active chest pain, palpitations, shortness of breath, nausea. States pain between her shoulder blades is also much improved. No other new symptom Allergies Allergy/AdvReac Type Severity Reaction Status Date / Time tuberculin, purified protein Allergy Unknown LOCAL Verified 10/25/09 04:22 deriva REACTION Home Medications Medication Instructions Recorded Confirmed Type lisinopril 20 1 tab PO DAILY 02/20/24 02/20/24 History mg-hydrochlorothiazide 12.5 mg tablet lisinopril 5 mg tablet 5 mg PO HS 02/20/24 02/20/24 History metformin 500 mg tablet,extended 500 mg PO BID 02/20/24 02/20/24 History release 24 hr omeprazole 20 mg capsule,delayed 20 mg PO DAILY 02/20/24 02/20/24 History release sulindac 150 mg tablet 150 mg PO BID 02/20/24 02/20/24 History Past Med/Surg History Problem List (Updated 02/20/24 @ 14:08 by Charlie Arnold MD) Near syncope Palpitations (Acute) Dizziness (Acute) Diplopia (Acute) Left-sided third cranial nerve palsy on examination (Acute) Medical History H/O: HTN (hypertension) Surgical History No pertinent past surgical history Social History Smoking Status: Never smoker Hx Alcohol Use: No Hx Substance Use: No current occupational status: employed Feels Safe at Home: Yes Review of Systems Review of Systems: all noted and negative except for above Physical Exam Physical Exam: General- oriented x 3, not in distress, speaks in sentences with no effort or accessory muscle use Head- atraumatic Eyes- PERRL, EOMI, anicteric ENT- oropharynx clear Neck- supple, no JVD, no adenopathy, no thyromegaly; carotids +2/2, no bruits appreciated Lungs- clear to auscultation bilaterally, no rales/wheezes Heart- normal rate, regular rhythm; no murmur, no gallop, no rub appreciated Abdomen- normal bowel sounds, nondistended, soft, nontender, no masses or hepatosplenomegaly Extremities- no pretibial edema, no calf tenderness; peripheral pulses intact Neuro- alert, oriented x 3; CN 2-12 grossly intact; motor 5/5 bilaterally;sensation 100% on all extremities; no other gross focal neurologic deficits Skin- warm & dry Results & Data Results & Data Vital Signs (Past 12 Hours) Vital Signs Temp Pulse Pulse Resp BP BP Pulse Ox 02/20/24 12:47 90 20 126/86 96 02/20/24 10:52 116 H 02/20/24 10:37 36.9 C 111 H 16 150/85 H 97 O2 Del Method 02/20/24 12:47 Room Air 02/20/24 10:52 02/20/24 10:37 Room Air all noted and reviewed including below Code Status & VTE Plan VTE Prophylaxis Plan VTE Prophylaxis will be ordered: Yes
--- NOTE | 2024-02-20 14:39 | CT Scan Report ---
CT head/brain wo con CLINICAL HISTORY: near syncope Technique: Contiguous axial CT images of the head were acquired from the base of the skull to the [place] without intravenous contrast administration. Images were viewed in brain, subdural and bone [facility]. Automated dose lowering techniques and/or adjustment according to patient size were utilized for this exam. Comparison: None available at the time of this dictation. Findings: The ventricles, basal cisterns, and cerebral sulci are normal. There is no acute intracranial hemorrh age or evidence of acute territorial infarction. Neither mass effect, shift of the midline structures , nor abnormal extra-axial fluid collections are shown. Imaged portions of the paranasal sinuses and mastoid air cells are clear. The orbits appear normal. There are no acute fractures of the calvaria or scalp swelling. Impression: No acute intracranial hemorrhage, no evidence of acute territorial infarction or other acute intracra nial disease process. ACT 112: Negative or not required by law. Electronically signed by: Vernon Mc M.D. 02/20/2024 2:38 PM
[2024-02-20] MEDS ORDERED: GLUCOSE 40% GEL 15 GM TUBE PO PRN (18:00)
[2024-02-20] MEDS ORDERED: ACETAMINOPHEN 325 MG TAB PO PRN (18:00)
[2024-02-20] MEDS ORDERED: CARBOHYDRATES FOR HYPOGLYCEMIA PO PRN (18:00)
[2024-02-20] MEDS ORDERED: GLUCOSE 10 TAB/TUBE PO PRN (18:00)
[2024-02-20] MEDS ORDERED: DEXTROSE 50% 50 ML SYRINGE IV PRN (18:00)
[2024-02-20] MEDS ORDERED: GLUCAGON FOR INJ 1 MG VIAL SQ PRN (18:00)
[2024-02-20] MEDS: INSULIN ASPART PER UNIT CHARGE SC SCH (18:40)
[2024-02-20] MEDS: SODIUM CHLORIDE 0.9% 1,000 ML IV SCH (19:32)
[2024-02-20] MEDS: Heparin IV Adult Wt-Based Standard *NO* INITIAL Bolus Protocol IV STA (21:20)
[2024-02-20] MEDS: ATORVASTATIN 40 MG TAB PO STA (21:25)
[2024-02-20] MEDS: ASPIRIN CHEW 324 MG PO STA (21:28)
[2024-02-20] MEDS: METOPROLOL TARTRATE 25 MG TAB PO SCH (21:28)
[2024-02-20] MEDS: HEPARIN SODIUM/DEXTROSE 25,000 UNITS/500 ML BAG IV SCH (21:28)
[2024-02-20] MEDS: ROSUVASTATIN CALCIUM 20 MG TAB PO STA (22:31)
[2024-02-20] MEDS: lisinopril 5 MG TAB PO SCH (22:31)
[2024-02-21 05:21] LABS: Hematocrit (blood only) 38.4 % (37.0-47.0); Hemoglobin 12.8 g/dl (12.0-16.0); Mean Corpuscular Hemoglobin 30.6 pg (25.0-34.0); Mean Corpuscular Hgb Conc 33.3 g/dL (32.0-36.0); Mean Corpuscular Volume 91.9 fL (80.0-100.0); Platelet Count 282 K/uL (130-400); RDW Coefficient of Variation 12.5 % (11.5-14.5); RDW Standard Deviation 41.7 fL (36.4-46.3); Red Blood Count 4.18 M/uL (4.20-5.40); White Blood Count 6.91 K/ul (4.8-10.8)
[2024-02-21 05:29] LABS: Albumin Globulin Ratio 1.6 (0.9-2); Albumin Level 3.6 gm/dl (3.4-5.0); BUN Creatinine Ratio 19.5 (10-20); Bilirubin,Total 0.3 mg/dl (0.2-1.0); Calcium 8.5 mg/dl (8.6-10.3); Creatinine Clr Calc Pharmacy 72.2 ml/min; Est GFR (African American) 93.3 ml/min; Est GFR (Non-African American) 80.5 ml/min; Globulin 2.3 gm/dl (2.5-4.0); Potassium 3.9 mmol/L (3.5-5.1); Total Protein 5.9 gm/dl (6.0-8.3)
[2024-02-21 05:39] LABS: ANTI-Xa, UFH(UnfractionatedHep 0.47 IU/ml (0.3-0.7)
--- NOTE | 2024-02-21 05:42 | Electrocardiogram Report ---
Test Reason : Blood Pressure : / mmHG Vent. Rate : 115 BPM Atrial Rate : 115 BPM P-R Int : 154 ms QRS Dur : 082 ms QT Int : 330 ms P-R-T Axes : 067 035 062 degrees QTc Int : 456 ms Sinus tachycardia Cannot rule out Anterior infarct , age undetermined Abnormal ECG When compared with ECG of 07-DEC-2022 11:04, No significant change was found Confirmed by Jackson Lozano ([id number]) on 02/21/2024 5:42:33 AM Referred By: REFERRED SELF Confirmed By:Jackson Lozano
[2024-02-21 05:59] LABS: Basophils # (auto) 0.05 K/uL (0.00-0.20); Basophils % (auto) 0.7 %; Eosinophils # (auto) 0.29 K/uL (0.00-0.50); Eosinophils % (auto) 4.2 %; Immature Granulocytes # (auto) 0.01 K/uL (0.01-0.20); Immature Granulocytes % (auto) 0.1 %; Lymphocytes # (auto) 3.97 K/uL (1.20-3.40); Lymphocytes % (auto) 57.5 %; Monocytes # (auto) 0.39 K/uL (0.11-0.59); Monocytes % (auto) 5.6 %; Neutrophils % (auto) 31.9 %
[2024-02-21] MEDS: PANTOprazole 40 MG TAB PO SCH (07:45)
--- NOTE | 2024-02-21 09:21 | Cardiology Consultation ---
Date of Consultation February 21, 2024 Assessment & Plan (1) Chest pain: (2) Back pain: (3) Near syncope: (4) Palpitations: (5) Elevated troponin: Plan 68-year-old female admitted following a near syncope at home that was associated with observed hypotension and an unknown tachyarrhythmia (? symptomatic PSVT). High-sensitivity troponin was initially normal at 13.8, rising to 498.6 then 333.7 pg/mL. EKG without acute change. Telemetry personally reviewed, benign. Resting echocardiography with preserved LV systolic function without wall motion abnormality. Chest CT without acute abnormality. Recommendations: Maintain NPO status pending further cardiac evaluation, stress testing versus catheterization. Add beta-cherelle therapy, metoprolol tartrate 25 mg twice per day Discontinue HCTZ Decrease lisinopril dosing Continue aspirin and statin Outpatient Zio +/- EP evaluation pending inpatient course. Further recommendations pending evaluation by Dr. Jacobsen. I spent a total of 60 minutes on the date of service in preparation, delivery, and documentation of the care provided to this patient excluding any time spent in the performance of separately billed services. This visit was a split-shared visit with the substantive portion of the medical decision making performed by the supervising support clerk/billing provider. Supervising Physician Co-Signing Physician Notes Attending attestation: Case reviewed with the advanced practitioner. I have personally performed a history and physical examination on the patient. I have reviewed the advanced practitioner's documentation on the date of service referenced in note, and I agree with, and take responsibility for the plan of care. Subjective: Patient seen prior to, during, and after exercise stress echocardiogram. Events prompting presentation to the emergency department will described administer lumbar dose progress note. Just over 2 weeks ago, the patient's , Alejandro, who had been a patient of mine after a long illness with multiple myeloma. Exam: Cardiovascular: Regular rhythm, no murmurs, no edema Data: High-sensitivity troponin I, 13.8--> 498.6 PG per mL--> 337.7 PG per mL Serial EKGs reveal sinus rhythm without suggestion of ischemia. Resting echocardiogram performed today 02/21/2024 and interpret independently: Sinus rhythm present during the echocardiogram, mild concentric left ventricular hypertrophy, no regional wall motion abnormalities, LVEF in the range of 55 to 60%, mild mitral regurgitation, mild aortic valve sclerosis without stenosis grade 1 diastolic dysfunction Exercise stress echocardiogram: Exercise capacity below average, test terminated during stage III the Masood protocol due to fatigue and hypertensive blood pressure response with peak systolic blood pressure 239 mmHg. No chest discomfort reported during test, patient did have transient severe nauseousness early in the post-rest recovery interval, with no associated EKG abnormalities to suggest ischemia. LV wall motion postexercise normal. Impression/ Plan: Presentation suggestive of episode of tachycardia at home with resultant near syncope Underlying uncontrolled hypertension observed -Advance diet -Agree with recent addition of metoprolol tartrate 25 mg twice daily, patient has received 2 doses thus far. -The patient's morning dose of lisinopril 20 mg was held today, will proceed with 20 mg of lisinopril now, usual home dose of 5 mg tonight -Continue to hold HCTZ for now. -Discontinue unfractioned heparin infusion, start DVT prophylaxis Lovenox 40 mg daily. -Anticipate it will take another day in the hospital to optimize blood pressure medication I spent a total of 25 minutes coordinating, documenting, and providing care for this patient excluding time spent in the performance of separately billed services or time spent by another provider. Arian Jacobsen DO History of Present Illness Reason for Consultation: Palpitations, elevated troponin Requesting Physician: Dr. Arnold Attending Physician: Dr. Savage History of Present Illness Mrs. Keli Jacobs is a 68-year-old female who lost her Alejandro with multiple myeloma on February 01, 2024. The following week she had a respiratory illness including sinus congestion for which she has been taking Mucinex with decongestant as well as DayQuil (last dose in the AM of 02/18). Wednesday morning she was sitting on the couch watching television and eating a bowl of cereal. All of a sudden things started to go black. She notes that she raised up and took a deep breath and then things seem to clear up. She notes checking her blood pressure at that time and seeing a systolic reading of 78 with a heart rate of 144 bpm. She notes sitting there a little while and observing fluctuations in her heart rate via the blood pressure monitor. She then got up to take her bowl back to the kitchen and she began to experience palpitations. She rechecked her blood pressure via home monitoring and saw a systolic reading of 106 with a heart rate of 199 bpm. It was at that time she began to experience an ache in the center of her chest as well as discomfort between her shoulder blades. No syncope. Thereafter she summoned her daughter and came to the [facility] emergency room where she was evaluated by Dr. Morrissey. EKG showed no acute change. Initial high-sensitivity troponin was 13.8, rising to 498.6 then 333.7. Resting echocardiography showed preserved LV systolic function without wall motion abnormality. Telemetry personally reviewed, benign. Chest x-ray without acute chest disease. Chest CT without acute abnormality including no evidence of acute aortic injury. Head CT without acute process. Patient denies prior cardiac history. She specifically denies history of CAD, [place], CHF, arrhythmia, heart murmur, rheumatic fever, or scarlet fever. The discomfort that occurred with the above event was somewhat reproducible with palpation of the chest however the discomfort between the shoulder blades was not reproducible. No activity related chest discomfort. No unusual shortness of breath. No orthopnea, PND, or peripheral edema. No true syncope. No current fevers or chills. No vomiting, diarrhea (chronically constipation, aided by stool softeners, stopping Oxempic months ago due to GI issues including constipation). No epistaxis, hemoptysis, melena, hematochezia, or hematuria. Family History: Mother had CHF, passing at 76. Father was a mail messenger contractor who with lung related issues. Sister in September 2022 with lung cancer. Brother okay. No family history of premature CAD or sudden cardiac . Social History: Non-smoker. No alcohol. No illegal drug use. February 01, 2024. 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) Allergies Allergy/AdvReac Type Severity Reaction Status Date / Time tuberculin, purified protein Allergy Unknown LOCAL Verified 10/25/09 04:22 deriva REACTION Home Medications Medication Instructions Recorded Confirmed Type lisinopril 20 1 tab PO DAILY 02/20/24 02/20/24 History mg-hydrochlorothiazide 12.5 mg tablet lisinopril 5 mg tablet 5 mg PO HS 02/20/24 02/20/24 History metformin 500 mg tablet,extended 500 mg PO BID 02/20/24 02/20/24 History release 24 hr omeprazole 20 mg capsule,delayed 20 mg PO DAILY 02/20/24 02/20/24 History release sulindac 150 mg tablet 150 mg PO BID 02/20/24 02/20/24 History Patient History Medical History H/O: HTN (hypertension) Surgical History No pertinent past surgical history Social History Smoking Status: Never smoker Hx Alcohol Use: No Hx Substance Use: No Preferred Language: Divehi Communication Ability: Effective [employer] Required: No Beliefs That Will Affect Care: None Current Living Situation: Alone current occupational status: employed Feels Safe at Home: Yes Assistive Devices: None Review of Systems Review of Systems: Complete Review of Systems is as stated above, negative, or noncontributory. Physical Exam Physical Exam: General: A&Ox3. NAD. HENT: Normocephalic. Atraumatic. Eyes: PER. Conjunctiva pink, sclera clear. Neck: No carotid bruits. No JVD. No HJR. Heart: RRR, 84 bpm. No murmur. No rub. Lungs: Clear to auscultation. Abdomen: +BS. Soft. Nontender. No masses or organomegaly. Extremities: No clubbing, cyanosis, or edema. Limited neurological examination is without focal deficits. Pulses: radial=2/4, posterior tibial=2/4. Results & Data Vital Signs (Past 12 Hours) Vital Signs Temp Pulse Pulse Resp BP Pulse Ox Pulse Ox 02/21/24 07:37 36.9 C 94 H 18 136/89 95 02/21/24 04:11 76 17 115/78 93 02/21/24 02:52 74 02/21/24 00:11 36.8 C 78 17 143/77 H 96 02/21/24 00:11 100 O2 Del Method O2 Del Method 02/21/24 07:37 Room Air 02/21/24 04:11 Room Air 02/21/24 02:52 02/21/24 00:11 Room Air 02/21/24 00:11 Room Air Laboratory Results Cardiac Enzymes 02/20/24 02/20/24 02/21/24 Range/Units 10:59 18:53 00:35 AST 27 (13-39) U/L Troponin I High Sens 13.8 498.6 H* D 333.7 H* D (0-14) pg/ml 02/21/24 Range/Units 04:30 AST 19 (13-39) U/L Troponin I High Sens (0-14) pg/ml Coagulation 02/20/24 Range/Units 11:10 PT 10.1 (9.0-12.0) Seconds APTT 24 (21-31) Seconds CBC 02/20/24 02/21/24 Range/Units 10:59 04:30 WBC 5.72 6.91 (4.8-10.8) K/ul RBC 5.07 4.18 L (4.20-5.40) M/uL Hgb 15.6 12.8 (12.0-16.0) g/dl Hct 46.6 38.4 (37.0-47.0) % Plt Count 279 282 (130-400) K/uL Neut # (Auto) 2.39 2.20 (1.40-6.50) K/uL Lymph # (Auto) 2.86 3.97 H (1.20-3.40) K/uL [place] # (Auto) 0.26 0.39 (0.11-0.59) K/uL Eos # (Auto) 0.16 0.29 (0.00-0.50) K/uL Baso # (Auto) 0.04 0.05 (0.00-0.20) K/uL Comprehensive Metabolic Panel 02/20/24 02/21/24 Range/Units 10:59 04:30 Sodium 136 139 (136-145) mmol/L Potassium 3.9 3.9 (3.5-5.1) mmol/L Chloride 104 108 H (98-107) mmol/L Carbon Dioxide 23 25 (21-32) mmol/L BUN 14 15 (6-23) mg/dl Creatinine 0.76 0.77 (0.6-1.2) mg/dl Glucose 122 H 119 H (70-99(Fasting)) mg/dl Calcium 9.6 8.5 L (8.6-10.3) mg/dl AST 27 19 (13-39) U/L ALT 28 23 (7-52) U/L Alkaline Phosphatase 70 53 (34-104) U/L Total Protein 7.0 5.9 L (6.0-8.3) gm/dl Albumin 4.3 3.6 (3.4-5.0) gm/dl Intake and Output 02/20/24 02/21/24 02/21/24 22:59 06:59 14:59 Intake Total 1000 / 1197.417 197.417 / 1197.417 978.667 / 978.667 Balance 1000 / 1197.417 197.417 / 1197.417 978.667 / 978.667 Intake: IV 1000 / 1197.417 197.417 / 1197.417 978.667 / 978.667 Heparin Sodium/Dextrose 25,000 197.417 / 197.417 units In 500 ml @ 1,150 UNITS/ HR 23 mls/hr IV .[id number] SIMRAN Rx #:[id number] Sodium Chloride 0.9% 1,000 ml @ 1000 / 1000 978.667 / 978.667 80 mls/hr IV .[id number] SIMRAN Rx#: [id number] Oral 0 / 0 Other: # Unmeasured Voids 1 1 Weight 84 kg 84 kg Weight Measurement Method Built in [facility] Diagnostic Findings EKG on admission revealed sinus tachycardia with ventricular rate of 115 bpm. Cannot rule out an old anterior infarct. QTc 456 ms. When compared to prior available EKG from December 07, 2022, there is no significant change. A second EKG on February 20, 2024 revealed normal sinus rhythm at 89 bpm. Cannot rule out an old anterior infarct. QTc 462 ms. When compared to prior available tracing, there is no significant change. Resting echocardiography on February 20, 2024 ([facility], Dr. Wells): Mild concentric LVH. Normal LV wall motion. Ejection fraction 55 to 60%. Mild mitral regurgitation. Mild aortic valve sclerosis without significant stenosis. Telemetry: Sinus throughout (1) Chest pain Chest pain type: precordial pain Qualified Code(s): R07.2 - Precordial pain (2) Back pain Back pain laterality: midline Back pain location: thoracic back pain Chronicity: acute Qualified Code(s): M54.6 - Pain in thoracic spine
[2024-02-21 12:45] LABS: ANTI-Xa, UFH(UnfractionatedHep 0.59 IU/ml (0.3-0.7)
--- NOTE | 2024-02-21 13:21 | Hospitalist Progress Note ---
Date of Service February 21, 2024 Assessment & Plan (1) Near syncope: (2) Palpitations: Plan: 65-year-old female with history of diabetes type 2, hypertension, etc. presenting with near syncopal episode In the morning of arrival. She is being managed for the following: Episode of Near syncope, palpitations: 02/20 Ortho vitals are neg. Rule out Arrhythmia Elevated troponin, rule out ACS Came in with episode of palpitations/chest pressure and upper back pressure associated treated with transient blackout and dizziness. Patient denies taking AM blood pressure medication prior to this event in AM of 02/19. Troponin trend13.8--- 498.6----- 333.7. ECG without acute ST or T changes. Echo with EF of 55 to 60%, mild mitral regurgitation. Left ventricular wall motion is normal. Mild concentric LVH. CTA chest: No acute abnormality. No PE. No evidence of acute aortic injury. 4 mm nodule in the right middle lobe, patient has history of adenocarcinoma in sister, patient and her daughter Letitia were updated at bedside 02/20. They were advised to follow-up with CT scan in 12-month time. Monitor and replete electrolytes, continue telemetry monitoring. Patient on heparin drip, continue. Cardiology on board, appreciate recommendation - Stress testing versus cath. Outpatient Zio patch monitoring/EP evaluation. Metoprolol added, hydrochlorothiazide discontinued, lisinopril decreased. Continue aspirin and statin. Rule out acute CVA: No neurological/focal neurological signs noted. CT head with no acute finding. Other chronic medical conditions: Continue with/resume home meds as and when able T2DM: Hold metformin, patient has discontinued Ozempic due to constipation. Sliding scale insulin while in hospital Hypertension: cardiac medication being optimized as above. Continue to monitor blood pressure. Brachial plexopathy: Chronic, takes sulindac twice a day DVT prophylaxis: On heparin drip CODE STATUS: Full code Disposition lives at home. Admission and Anticipated Discharge Date Admission Date: February 20, 2024 Subjective Patient was seen and examined at bedside. Patient was lying in bed, on room air, resting comfortably, patient's daughter Letitia at bedside who was also updated on plan of care. Patient denies further dizziness/palpitations/hypotensive episodes. Patient denies chest pain. Patient denies any flulike illness or febrile illness in the recent past. Reports eating okay and moving bowels okay. No problem with pain or burning with passing urine. Physical Exam Physical Exam: General- oriented x 3, not in distress, speaks in sentences with no effort or accessory muscle use Head- atraumatic Eyes- PERRL, EOMI, anicteric ENT- oropharynx clear Neck- supple, no JVD, no adenopathy, no thyromegaly; carotids +2/2, no bruits appreciated Lungs- clear to auscultation bilaterally, no rales/wheezes Heart- normal rate, regular rhythm; no murmur, no gallop, no rub appreciated Abdomen- normal bowel sounds, nondistended, soft, nontender, no masses or hepatosplenomegaly Extremities- no pretibial edema, no calf tenderness; peripheral pulses intact Neuro- alert, oriented x 3; CN 2-12 grossly intact; motor 5/5 bilaterally;sensation 100% on all extremities; no other gross focal neurologic deficits Skin- warm & dry Results & Data Results & Data Vital Signs (Past 12 Hours) Vital Signs Temp Pulse Pulse Resp BP BP Pulse Ox 02/21/24 11:43 36.8 C 69 18 149/90 H 93 02/21/24 07:37 36.9 C 94 H 18 136/89 95 02/21/24 04:11 76 17 115/78 93 02/21/24 02:52 74 O2 Del Method 02/21/24 11:43 Room Air 02/21/24 07:37 Room Air 02/21/24 04:11 Room Air 02/21/24 02:52
[2024-02-21] MEDS: lisinopril 20 MG TAB PO STA (16:12)
[2024-02-22 08:46] LABS: BUN Creatinine Ratio 17.1 (10-20); Calcium 8.5 mg/dl (8.6-10.3); Creatinine Clr Calc Pharmacy 79.7 ml/min; Est GFR (African American) 104.6 ml/min; Est GFR (Non-African American) 90.3 ml/min; Magnesium 1.9 mg/dl (1.7-2.4); Phosphorus 3.4 mg/dl (2.5-4.9)
--- NOTE | 2024-02-22 09:59 | Cardiology Progress Note ---
Date of Service February 22, 2024 Assessment & Plan (1) Chest pain: (2) Back pain: (3) Near syncope: (4) Palpitations: (5) Elevated troponin: Plan 68-year-old female admitted following a near syncope at home that was associated with observed hypotension and an unknown tachyarrhythmia (? symptomatic PSVT). High-sensitivity troponin was initially normal at 13.8, rising to 498.6 then 333.7 pg/mL. EKG without acute change. Telemetry benign. Resting echocardiography with preserved LV systolic function without wall motion abnormality. Chest CT without acute abnormality. Exercise stress echocardiography nonischemic, without arrhythmia though with baseline hypertension and a hypertensive blood pressure response. Recommendations: Change metoprolol tartrate 25 mg twice a day to metoprolol succinate, 50 mg once a day Increase Lisinopril to 20 mg twice a day for additional blood pressure control Hold HCTZ for now; may need to resume down the road starting out at a few days per week Continue aspirin and statin Outpatient Zio monitor Outpatient cardiology follow-up I spent a total of 30 minutes on the date of service in preparation, delivery, and documentation of the care provided to this patient excluding any time spent in the performance of separately billed services. This visit was a split-shared visit with the substantive portion of the medical decision making performed by the supervising director of billing/billing provider. Admission and Anticipated Discharge Date Admission Date: February 20, 2024 Supervising Physician Co-Signing Physician Notes Attending attestation: Case reviewed with the advanced practitioner. I have personally performed a history and physical examination on the patient. I have reviewed the advanced practitioner's documentation on the date of service referenced in note, and I agree with, and take responsibility for the plan of care. Patient feeling well. Denies palpitations. BP improved. Telemetry reveals SR in the 70s. I spent a total of 20 minutes coordinating, documenting, and providing care for this patient excluding time spent in the performance of separately billed services or time spent by another provider. Arian Jacobsen, Subjective Patient seen and examined. Chart, medications, telemetry reviewed. Feeling okay. No headaches. No chest pain. No palpitations. No shortness of breath. Systolic blood pressures over the last 24 hours have ranged from 115-158 with diastolic readings ranging from 78-90. Telemetry: Sinus in the 70s and 80s. February 21, 2024 LONG Interpretation Summary ([facility], Dr. Jacobsen): Patient exercised for 5 minutes and 39 seconds on a standard Masood protocol, achieving a peak workload of 7 METS. Resting heart rate was 77 bpm, rising to a maximum of 137 bpm which represents 88% age-predicted maximum heart rate. Resting blood pressure was 178 over 91 mmHg, rising to a maximum of 245/98. The exercise stress test was terminated due to fatigue and hypertensive blood pressure response. No symptoms suggestive of angina reported. Patient reported transient nausea since early in the postrecovery interval that spontaneously resolved. Stress echocardiogram negative for ischemia. Baseline hypertension with hypertensive blood pressure response to exercise observed. Recommend optimization of hypertension. Review of Systems Review of Systems: Complete Review of Systems is as stated above, negative, or noncontributory. Physical Exam Physical Exam: General: A&Ox3. NAD. HENT: Normocephalic. Atraumatic. Eyes: PER. Conjunctiva pink, sclera clear. Neck: No JVD. Heart: RRR, 70 bpm. No murmur. No rub. Lungs: Clear to auscultation. Abdomen: +BS. Soft. Nontender. No masses or organomegaly. Extremities: No clubbing, cyanosis, or edema. Limited neurological examination is without focal deficits. Pulses: radial=2/4, posterior tibial=2/4. Results & Data Vital Signs (Past 12 Hours) Vital Signs Temp Pulse Pulse Resp BP BP Pulse Ox 02/22/24 07:20 37.0 C 80 18 133/80 94 02/22/24 03:00 02/22/24 00:15 83 02/22/24 00:10 02/21/24 23:17 36.4 C L 72 20 115/72 97 O2 Del Method O2 Del Method 02/22/24 07:20 Room Air 02/22/24 03:00 Room Air 02/22/24 00:15 02/22/24 00:10 Room Air 02/21/24 23:17 Room Air Laboratory Results Comprehensive Metabolic Panel 02/22/24 Range/Units 08:02 Sodium 141 (136-145) mmol/L Potassium 4.0 (3.5-5.1) mmol/L Chloride 110 H (98-107) mmol/L Carbon Dioxide 26 (21-32) mmol/L BUN 12 (6-23) mg/dl Creatinine 0.70 (0.6-1.2) mg/dl Glucose 109 H (70-99(Fasting)) mg/dl Calcium 8.5 L (8.6-10.3) mg/dl Intake and Output 02/21/24 02/22/24 02/22/24 22:59 06:59 14:59 Intake Total 774.216 / 2596.250 100 / 2596.250 985.333 / 985.333 Balance 774.216 / 2596.250 100 / 2596.250 985.333 / 985.333 Intake: IV 399.216 / 2121.250 985.333 / 985.333 Heparin Sodium/Dextrose 25,000 97.883 / 302.583 units In 500 ml @ 0 UNITS/HR IV .Q0M [facility] Rx#:[id number] Sodium Chloride 0.9% 1,000 ml @ 301.333 / 1818.667 985.333 / 985.333 80 mls/hr IV .[id number] [facility]AN Rx#: [id number] Oral 375 / 475 100 / 475 Other: # Unmeasured Voids 1 Weight 84.5 kg Weight Measurement Method Built in [facility] (1) Chest pain Chest pain type: precordial pain Qualified Code(s): R07.2 - Precordial pain (2) Back pain Back pain laterality: midline Back pain location: thoracic back pain Chronicity: acute Qualified Code(s): M54.6 - Pain in thoracic spine
[2024-02-22] MEDS: ENOXAPARIN INJ 40 MG/0.4 ML SYR SQ SCH (10:39)
[2024-02-22] MEDS: lisinopril 20 MG TAB PO SCH (10:40)
[2024-02-22] MEDS: POLYETHYLENE (MIRALAX) 17 GM PACK PO ONE (13:15)
[2024-02-22] MEDS: lisinopril 20 MG TAB PO STA (13:15)
--- NOTE | 2024-02-22 14:09 | Discharge Summary ---
Date of Service February 22, 2024 Admission HPI Per Admitting Provider 65-year-old female with history of diabetes type 2, hypertension, etc. presenting with near syncopal episode this morning. Patient was sitting in her couch, having a bowl of cereal for breakfast when she suddenly felt dizzy and saw everything was black , which lasted for about 2 to 3 seconds. This was followed by a sensation of epigastric discomfort as well as pain in between her shoulder blades. She did not pass out, nor did not have any palpitations during this episode. Using her home monitor, she noted that her blood pressure was systolic 60s, heart rate in the 140s. She rested and after a few minutes, she reports having palpitations . At that time, her monitor was showing that her heart rate was fluctuating between 190s and 40s, blood pressure 116 over 70s. At the ER, blood pressure was 150/85, heart rate 111. EKG sinus rhythm, heart rate [address] angio chest: No PE or dissection On exam, patient seen sitting up in bed, comfortable, not in distress. Denies active chest pain, palpitations, shortness of breath, nausea. States pain between her shoulder blades is also much improved. No other new symptom Admission Exam Per Admitting Provider General- oriented x 3, not in distress, speaks in sentences with no effort or accessory muscle use Head- atraumatic Eyes- PERRL, EOMI, anicteric ENT- oropharynx clear Neck- supple, no JVD, no adenopathy, no thyromegaly; carotids +2/2, no bruits appreciated Lungs- clear to auscultation bilaterally, no rales/wheezes Heart- normal rate, regular rhythm; no murmur, no gallop, no rub appreciated Abdomen- normal bowel sounds, nondistended, soft, nontender, no masses or hepatosplenomegaly Extremities- no pretibial edema, no calf tenderness; peripheral pulses intact Neuro- alert, oriented x 3; CN 2-12 grossly intact; motor 5/5 bilaterally;sensation 100% on all extremities; no other gross focal neurologic deficits Skin- warm & dry Principal Diagnosis Episode of near syncope, palpitation Rule out arrhythmia Discharge Exam General- oriented x 3, not in distress, speaks in sentences with no effort or accessory muscle use Head- atraumatic Eyes- PERRL, EOMI, anicteric ENT- oropharynx clear Neck- supple, no JVD, no adenopathy, no thyromegaly; carotids +2/2, no bruits appreciated Lungs- clear to auscultation bilaterally, no rales/wheezes Heart- normal rate, regular rhythm; no murmur, no gallop, no rub appreciated Abdomen- normal bowel sounds, nondistended, soft, nontender, no masses or hepatosplenomegaly Extremities- no pretibial edema, no calf tenderness; peripheral pulses intact Neuro- alert, oriented x 3; CN 2-12 grossly intact; motor 5/5 bilaterally;sensation 100% on all extremities; no other gross focal neurologic deficits Skin- warm & dry Discharge Data Allergies Allergy/AdvReac Type Severity Reaction Status Date / Time tuberculin, purified protein Allergy Unknown LOCAL Verified 10/25/09 04:22 deriva REACTION Consultations 02/20/24 13:19 ED Decision to Admit Stat 02/20/24 20:45 Consult Cardiology Routine Ordered Studies 02/20/24 12:01 CTA chest dissec wo/w con [CT angio chest dissec wo/w con] Stat 02/20/24 14:00 CT head/brain wo con Stat Hospital Course (1) Near syncope: (2) Palpitations: 65-year-old female with history of diabetes type 2, hypertension, etc. presenting with near syncopal episode In the morning of arrival. She was managed for the following: Episode of Near syncope, palpitations: 02/20 Ortho vitals are neg. Rule out Arrhythmia Elevated troponin, rule out ACS Came in with episode of palpitations/chest pressure and upper back pressure associated treated with transient blackout and dizziness. Patient denies taking AM blood pressure medication prior to this event in AM of 02/19. Troponin trend13.8--- 498.6----- 333.7. ECG without acute ST or T changes. Echo with EF of 55 to 60%, mild mitral regurgitation. Left ventricular wall motion is normal. Mild concentric LVH. CTA chest: No acute abnormality. No PE. No evidence of acute aortic injury. 4 mm nodule in the right middle lobe, patient has history of adenocarcinoma in sister, patient and her daughter Letitia were updated at bedside 02/20. They were advised to follow-up with CT scan in 12-month time. Cario evaled, meds optimized, hctz on hold at dc. BP fairly better, pt w/ no new symptoms, feels better and would like to go home. Outpatient Zio patch monitoring/EP evaluation. Continue aspirin and statin. Rule out acute CVA: No neurological/focal neurological signs noted. CT head with no acute finding. Other chronic medical conditions: Continue with/resume home meds as and when able T2DM: Hold metformin, patient has discontinued Ozempic due to constipation. Sliding scale insulin while in hospital Hypertension: cardiac medication being optimized as above. Continue to monitor blood pressure. Brachial plexopathy: Chronic, takes sulindac twice a day DVT prophylaxis: On heparin drip CODE STATUS: Full code Disposition lives at home. Patient is being discharged with following instruction at the point of discharge: Follow-up with your primary care physician within a week time and likely you will need labs CBC/CMP/magnesium/phosphorus. Your hydrochlorothiazide will be held on discharge, your other cardiac medications are optimized. You need outpatient Zio patch monitoring, follow-up with your primary care office or cardiology office to set up the test. Measure your blood pressure twice a day, maintain a log to take to your primary care physician for ongoing management of your blood pressure. As discussed at the bedside, 4 mm nodule was noted in the right middle lobe during chest imaging in the hospital, given history of adenocarcinoma in your sibling, recommend you repeat CT scan of the chest in 12 months time. Coordinate with your PCP office to set up the test. Take your medications as prescribed. Please make sure that you are able to get your medications today by calling your pharmacy before you leave the hospital so that your treatment continuity is not broken. Home Health Attestation I certify that this patient is under my care and that I, or a physicians electrician's assistant working with me, had a face to-face encounter that meets the home health [id number] encounter requirements with this patient. The encounter with the patient was in whole, or in part, for the following medical condition, which is the primary reason for home health care (list medical condition): I certify that, based on my findings, the following services are medically necessary home health services: My clinical findings support the need for the above services because: Further, I certify that my clinical findings support that this patient is homebound (i.e. absences from home require considerable and taxing effort and are for medical reasons or cheondoism services or infrequently or of short duration when for other reasons) because: Certification for Home Health Services: Based on the above findings, I certify that this patient is confined to the home and needs intermittent custodial care, physical therapy and/or speech therapy or continues to need occupational therapy. The patient is under my care, and I have initiated the establishment of the plan of care. This patient will be followed by a physician who will periodically review the plan of care. Total Time Total Time Spent Total Time Spent (In Minutes): 45 Discharge Plan Discharge Items Patient Disposition: Home - Self-Care Reason For Visit: NEAR SYNCOPE Discharge Diagnosis: Episode of near syncope, palpitation Rule out arrhythmia Activity: Resume your previous activity Non-emergency contact: Primary Care Provider Call non-emergency contact if: you have any medication questions, your symptoms worsen and your temperature is above 101 Follow-up/Referrals: Javi Nair MD [Primary Care Provider] - (Date & Time 02/25/2024 11:40 AM Provider Heather Pabon MD [facility] [address] ) Diet: Heart Healthy and Low Sodium (2gm) Addtl Attending Provider Instructions: Follow-up with your primary care physician within a week time and likely you will need labs CBC/CMP/magnesium/phosphorus. Your hydrochlorothiazide will be held on discharge, your other cardiac medications are optimized. You need outpatient Zio patch monitoring, follow-up with your primary care of [facility] or cardiology office to set up the test. Measure your blood pressure twice a day, maintain a log to take to your primary care physician for ongoing management of your blood pressure. As discussed at the bedside, 4 mm nodule was noted in the right middle lobe during chest imaging in the hospital, given history of adenocarcinoma in your sibling, recommend you repeat CT scan of the chest in 12 months time. Coordinate with your PCP office to set up the test. Take your medications as prescribed. Please make sure that you are able to get your medications today by calling your pharmacy before you leave the hospital so that your treatment continuity is not broken. Pending Studies at Discharge: No Stand-Alone Forms: My My[employer], Smoking Cessation Medications and DC Order Prescriptions: New lisinopril 20 mg Tablet 20 mg PO BID Qty: 60 0RF metoprolol succinate 50 mg Tablet Extended Release 24 Hr 50 mg PO QAM Qty: 30 0RF Continued sulindac 150 mg tablet 150 mg PO BID omeprazole 20 mg capsule,delayed release(DR/EC) 20 mg PO DAILY metformin 500 mg tablet extended release 24 hr 500 mg PO BID Discontinued lisinopril-hydrochlorothiazide 20-12.5 mg tablet 1 tab PO DAILY lisinopril 5 mg tablet 5 mg PO HS Discharge Orders: Discharge Order (Routine); Ordered 02/22/24 Ordered By: Lauren Savage Admission Data Admit Date/Time: 02/20/24 13:34 Attending Provider: Lauren Savage Admit Provider: Charlie Arnold Primary Care Provider: Javi Nair Other Providers: Charlie Arnold; Minal Kearns; Arian Jacobsen; Fritz Ortega; Сергей Rousseau; Silverio Redman; Javi Tena; Concepción Ye; Annette Ford; Olivia Galvez; Minal Cancino; King Rod; Edwin Magaña; Yolanda Patrick; Edel Toledo; Mya Walls; Johnny Anand; Alexander Carrera; Abril Kincaid
[2024-02-22] MEDS ORDERED: lisinopril 20 MG TAB PO SCH (21:00)
--- NOTE | 2024-02-23 05:32 | Electrocardiogram Report ---
Test Reason : Blood Pressure : / mmHG Vent. Rate : 089 BPM Atrial Rate : 089 BPM P-R Int : 152 ms QRS Dur : 080 ms QT Int : 380 ms P-R-T Axes : 002 038 050 degrees QTc Int : 462 ms Normal sinus rhythm Cannot rule out Anterior infarct (cited on or before 20-FEB-2024) Abnormal ECG When compared with ECG of 20-FEB-2024 10:43, No significant change was found Confirmed by Jackson Lozano ([id number]) on 02/23/2024 5:32:10 AM Referred By: REFERRED SELF Confirmed By:Jackson Lozano
[2024-02-23] MEDS ORDERED: METOPROLOL SUCC 50MG EXT REL TAB PO SCH (09:00)
== END 2024-02-22 14:55 | disposition home or self-care (01) ==
LOC: EDINP 10:33 → ED 10:33 → SUATTDRO 13:34 → 2E 18:00